=== PATIENT | female | born 1930 | race Hispanic/Latino ===

== ENCOUNTER 2017-07-12 10:19 | Observation (INO) | payer MEDICARE, MEDICAID ==
[2017-07-12 10:22] VITALS: BMI 26.4
[2017-07-12] MEDS ORDERED: Sodium Chloride 0.9% 500 ML IV STA (11:15)
[2017-07-12] MEDS ORDERED: Albuterol-Ipratrop 3 mg / 0.5 (3 ml) UD INH STA (11:17)
[2017-07-12] MEDS ORDERED: Albuterol-Ipratrop 3 mg / 0.5 (3 ml) UD IH STA (11:17)
--- NOTE | 2017-07-12 11:24 | ED PDOC ---
HPI: General Adult Time Seen by Provider: 07/12/17 10:53 Chief Complaint (Nursing): Dizziness/Lightheaded Chief Complaint (Provider): Dizziness History Per: Patient History/Exam Limitations: no limitations Onset/Duration Of Symptoms: Days (1 week) Current Symptoms Are (Timing): Still Present Additional Complaint(s): Pt. complains of dizziness for 1 week. Also her BP was high at home. Pt. states weakness all over and off and on asthma like her asthma. No numbness, tingles. No neck pain, headaches, back pain, chest pain/ No leg pain. No fever. No cough. Past Medical History Reviewed: Nursing Documentation, Vital Signs Vital Signs: Last Vital Signs Temp 97.9 F 07/12/17 10:22 Pulse 100 H 07/12/17 10:22 Resp 17 07/12/17 10:22 BP 181/97 H 07/12/17 10:22 Pulse Ox 96 07/12/17 11:29 - Medical History PMH: Anemia, Anxiety, Arthritis (severe L-spine), Asthma, CHF, COPD, Gastritis, HTN, Osteoporosis, Pneumonia Denies: HIV, Hyperlipidemia, Chronic Kidney Disease Other PMH: myasthenia gravis - Family History Family History: States: Unknown Family Hx - Social History Alcohol: None Drugs: Denies - Home Medications Home Medications: Ambulatory Orders Medication Instructions Recorded Albuterol HFA [Ventolin HFA 90 2 puff IH [id number] PRN 05/24/15 mcg/actuation (8 g)] Ferrous Sulfate [Feosol] 325 mg PO DAILY 05/24/15 Pyridostigmine [place] 60 mg PO QID 05/24/15 Calcium Carbonate/Vitamin D3 1 tab PO BID 06/21/15 [Caltrate 600 Plus D3 Tablet] ALPRAZolam [Xanax] 0.25 mg PO BID PRN 10/25/15 amLODIPine [Norvasc] 5 mg PO DAILY 02/14/16 Albuterol 0.083% [Albuterol 0.083% 3 ml IH Q6H PRN 02/15/16 Inhal Patricia (2.5 mg/3 ml) UD] predniSONE [predniSONE Tab] 10 mg PO DAILY 02/15/16 Valsartan [Diovan] 1 tab PO DAILY 08/07/16 Omeprazole 40 mg PO DAILY 10/16/16 Lidocaine 5% [Lidoderm] 1 patch TOP Q12 12/25/16 Hydrocortisone 2.5% 2.5 % TOP BID 03/05/17 [Hydrocortisone 2.5%] Meloxicam [Mobic] 1 tab PO HS PRN 06/25/17 - Allergies Allergies/Adverse Reactions: Allergies Allergy/AdvReac Type Severity Reaction Status Date / Time No Known Allergies Allergy Verified 06/25/17 15:20 Review of Systems ROS Statement: Except As Marked, All Systems Reviewed And Found Negative Constitutional: Positive for: Weakness Respiratory: Positive for: Shortness of Breath Neurological: Positive for: Weakness, Dizziness Physical Exam - Reviewed Nursing Documentation Reviewed: Yes Vital Signs Reviewed: Yes - Physical Exam Appears: Positive for: Non-toxic, No Acute Distress Head Exam: Positive for: ATRAUMATIC, NORMAL INSPECTION, NORMOCEPHALIC Skin: Positive for: Normal Color, Warm, DRY Eye Exam: Positive for: EOMI, Normal appearance, PERRL ENT: Positive for: Normal ENT Inspection Neck: Positive for: Normal, Painless ROM, Supple Cardiovascular/Chest: Positive for: Regular Rate, Rhythm Respiratory: Positive for: CNT, Normal Breath Sounds Gastrointestinal/Abdominal: Positive for: Normal Exam, Bowel Sounds, Soft. Negative for: Tenderness Back: Positive for: Normal Inspection. Negative for: L CVA Tenderness, R CVA Tenderness Extremity: Positive for: Normal ROM. 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 Negative for: Motor/Sensory Deficits, Aphasia, Facial Droop - Laboratory Results Result Diagrams: 07/12/17 12:26 07/12/17 12:26 Interpretation Of Abn Labs: no acute - ECG ECG: Positive for: Interpreted By Me, Viewed By Me ECG Rhythm: Positive for: Nonspecific Changes Interpretation Of ECG: similar to old O2 Sat by Pulse Oximetry: 96 Pulse Ox Interpretation: Normal - Radiology X-Ray: Read By Radiologist X-Ray Interpretation: No Acute Disease - CT Scan/US ct Other Rad Studies (CT/US): Read By Radiologist Other Rad Interpretation: no acute - Progress ED Course And Treament: 1454: Stable. AAOx3. Spoke to Dr. Pedro. Pt. well known to him. Will admit tele obs. Disposition - Clinical Impression Clinical Impression: Dizziness - Patient ED Disposition Is Patient to be Admitted: No - Disposition Disposition Time: 14:00 Condition: FAIR - Pt Status Changed To: Hospital Disposition Of: Observation - POA Present On Arrival: None
--- NOTE | 2017-07-12 12:28 | CT ---
PROCEDURE: CT HEAD WITHOUT CONTRAST. HISTORY: headache COMPARISON: None available. TECHNIQUE: Axial computed tomography images were obtained through the head/brain without intravenous contrast. Radiation dose: Total exam DLP = 838.42 mGy-cm. This CT exam was performed using one or more of the following dose reduction techniques: Automated exposure control, adjustment of the mA and/or kV according to patient size, and/or use of iterative reconstruction technique. FINDINGS: HEMORRHAGE: No intracranial hemorrhage. BRAIN: Good corticomedullary differentiation is seen. Diffuse expansion of the ventriculosulcal and cisternal spaces is appreciated with white matter lucency compatible with diffuse cerebral atrophy and chronic microangiopathy. No suspicious extra-axial fluid collection is identified and the midline brain anatomy appears grossly nonfocal as imaged. There is no mass effect throughout. Relatively extensive atherosclerosis of the cavernous bilateral internal carotid artery segments is identified as well as a segment of the distal left vertebral artery. VENTRICLES: Unremarkable. No hydrocephalus. CALVARIUM: Unremarkable. PARANASAL SINUSES: Partial opacification of the left sphenoid sinus including central calcification likely reflects chronic, inspissated sinusitis. MASTOID AIR CELLS: Unremarkable as visualized. No inflammatory changes. OTHER FINDINGS: None. IMPRESSION: Age related neuro degenerative changes are identified without acute intracranial findings as discussed above. Follow up CT or MRI are available if clinically warranted.
[2017-07-12] MEDS ORDERED: Albuterol-Ipratrop 3 mg / 0.5 (3 ml) UD ONE (12:30)
--- NOTE | 2017-07-12 12:30 | RAD ---
HISTORY: dyspnea COMPARISON: Portable chest 02/15/2016. FINDINGS: LUNGS: No active pulmonary disease. PLEURA: No significant pleural effusion identified, no pneumothorax apparent. CARDIOVASCULAR: Cardiac silhouette is stable with the mediastinum somewhat distorted by a scoliotic thoracolumbar spinal deformity once again. OSSEOUS STRUCTURES: Scoliosis as above. VISUALIZED UPPER ABDOMEN: Normal. OTHER FINDINGS: None. IMPRESSION: No definite acute cardiopulmonary disease appreciable in the interval compared prior chest radiograph 02/15/2016.
[2017-07-12 12:42] LABS: BASO # 0.1 K/uL (0.0-0.2); BASO % 0.9 % (0.0-2.0); EOS # 0.1 K/uL (0.0-0.7); EOS % 1.3 % (0.0-4.0); HEMOGLOBIN 12.6 g/dL (12.0-16.0); LYMPH # 1.2 K/uL (1.0-4.3); LYMPH % 21.7 % (20.0-40.0); MEAN CELL VOLUME 97.8 fl (81.0-99.0); MEAN CORPUSCULAR HEMOGLOBIN 32.2 pg (27.0-31.0); MEAN CORPUSCULAR HGB CONC 32.9 g/dL (33.0-37.0); MEAN PLATELET VOLUME 9.3 fl (7.2-11.7); MONO # 0.6 K/uL (0.0-0.8); MONO % 11.7 % (0.0-10.0); NEUT # 3.5 K/uL (1.8-7.0); NEUT % 64.4 % (50.0-75.0); NRBC % 0.1 % (0.0-0.0); RBC 3.92 Mil/uL (3.80-5.20); RED CELL DISTRIBUTION WIDTH 13.4 % (11.5-14.5); WHITE BLOOD COUNT 5.4 K/uL (4.8-10.8)
[2017-07-12 12:47] LABS: ALB/GLOB RATIO 0.9 (1.0-2.1); ALBUMIN 3.9 g/dL (3.5-5.0); ALT/SGPT 32 U/L (9-52); AST/SGOT 38 U/L (14-36); BLOOD UREA NITROGEN 16 mg/dl (7-17); CALCIUM 9.3 mg/dL (8.4-10.2); GFR AFRICAN-AMERICAN > 60; GFR NON-AFRICAN AMERICAN > 60
[2017-07-12 12:52] LABS: PROTHROMBIN TIME 10.2 Seconds (9.8-13.1)
[2017-07-12 12:53] LABS: INR 0.9 (0.9-1.2); PARTIAL THROMBOPLASTIN TIME 25.3 Seconds (25.6-37.1)
[2017-07-12] MEDS ORDERED: Albuterol-Ipratrop 3 mg / 0.5 (3 ml) UD INH PRN (16:41)
--- NOTE | 2017-07-12 16:44 | CP.PCM.HP ---
History of Present Illness - History of Present Illness History of Present Illness: This is a 66 y/o female with PMHx of Myasthenia gravis late onset, that has been responding with treatment, anemia , renal insufficiency, OA, anxiety and HTn and COPD that presented to ED c/o dizziness for 1 week. Denies headache, worsening vision, SOB, CP, palpitations, abd pain or vomiting. At ED found to be elevated BP. Patient states she is compliant with her home meds and follow with Dr Pedro at the office as well as with Dr Caba(Neuro) for MG Present on Admission - Present on Admission Any Indicators Present on Admission: No Review of Systems - Review of Systems All systems: reviewed and no additional remarkable complaints except (Those described on HPI) Past Patient History - Infectious Disease Hx of Infectious Diseases: None - Past Medical History & Family History Past Medical History?: Yes - Past Social History Alcohol: None Drugs: Denies - CARDIAC Hx Congestive Heart Failure: Yes Hx Hypertension: Yes - PULMONARY Hx Asthma: Yes Hx Chronic Obstructive Pulmonary Disease (COPD): Yes Hx Pneumonia: Yes - NEUROLOGICAL Hx Neurological Disorder: Yes (Myastenia) - HEENT Hx HEENT Problems: No - RENAL Hx Chronic Kidney Disease: No - ENDOCRINE/METABOLIC Hx Endocrine Disorders: No - HEMATOLOGICAL/ONCOLOGICAL Hx Anemia: Yes Hx Human Immunodeficiency Virus (HIV): No - INTEGUMENTARY Hx Dermatological Problems: No - MUSCULOSKELETAL/RHEUMATOLOGICAL Hx Arthritis: Yes (severe L-spine) Hx Osteoporosis: Yes - GASTROINTESTINAL Hx Gastritis: Yes - GENITOURINARY/GYNECOLOGICAL Hx Genitourinary Disorders: No Hx Urinary Tract Infection: Yes - PSYCHIATRIC Hx Anxiety: Yes - SURGICAL HISTORY Hx Surgeries: Yes Hx Vascular Access Device: No (Sree cath LR IJ) Other/Comment: Sree cath removed 07/27/2014 surgery on left leg, HERNIA REPAIR - ANESTHESIA Hx Anesthesia: Yes Hx Anesthesia Reactions: No Hx Malignant Hyperthermia: No Meds Allergies/Adverse Reactions: Allergies Allergy/AdvReac Type Severity Reaction Status Date / Time No Known Allergies Allergy Verified 06/25/17 15:20 Physical Exam - Constitutional Appears: Non-toxic, No Acute Distress - Eye Exam Eye Exam: EOMI, PERRL. absent: Nystagmus - ENT Exam ENT Exam: Mucous Membranes Moist - Respiratory Exam Respiratory Exam: Clear to Auscultation Bilateral, NORMAL BREATHING PATTERN. absent: Decreased Breath Sounds, Rales, Wheezes, Respiratory Distress - Cardiovascular Exam Cardiovascular Exam: REGULAR RHYTHM, +S1, +S2. absent: Clicks, Gallop - GI/Abdominal Exam GI & Abdominal Exam: Hernia, Normal Bowel Sounds, Soft. absent: Distended, Guarding, Rebound, Rigid, Tenderness - Extremities Exam Extremities exam: Positive for: normal capillary refill, pedal pulses present. Negative for: calf tenderness, pedal edema, tenderness - Neurological Exam Neurological exam: Alert, Oriented x3 - Psychiatric Exam Psychiatric exam: Normal Affect, Normal Mood - Skin Skin Exam: Normal Color, Warm Results - Vital Signs Recent Vital Signs: Last Vital Signs Temp 97.9 F 07/12/17 10:22 Pulse 100 H 07/12/17 10:22 Resp 17 07/12/17 10:22 BP 181/97 H 07/12/17 10:22 Pulse Ox 96 07/12/17 14:56 - Labs Result Diagrams: 07/12/17 12:26 07/12/17 12:26 Labs: Laboratory Results - last 24 hr 07/12/17 07/12/17 07/12/17 12:26 12:26 12:26 WBC 5.4 RBC 3.92 Hgb 12.6 Hct 38.3 MCV 97.8 MCH 32.2 H MCHC 32.9 L RDW 13.4 Plt Count 252 MPV 9.3 Neut % (Auto) 64.4 Lymph % (Auto) 21.7 [place] % (Auto) 11.7 H Eos % (Auto) 1.3 Baso % (Auto) 0.9 Neut # (Auto) 3.5 Lymph # (Auto) 1.2 [place] # (Auto) 0.6 Eos # (Auto) 0.1 Baso # (Auto) 0.1 PT 10.2 INR 0.9 APTT 25.3 L Sodium 133 Potassium 4.7 Chloride 96 L Carbon Dioxide 30 Anion Gap 12 BUN 16 Creatinine 0.7 Est GFR ( Amer) > 60 Est GFR (Non-Af Amer) > 60 Random Glucose 98 Calcium 9.3 Total Bilirubin 1.0 AST 38 H D ALT 32 Alkaline Phosphatase 63 Troponin I < 0.0120 Total Protein 8.1 Albumin 3.9 Globulin 4.2 H Albumin/Globulin Ratio 0.9 L Assessment & Plan - Assessment and Plan (Free Text) Assessment: Dizziness x 1 week Poss due to uncontrolled HTN Bp elevated at ED Restart home meds Amlodipine [address] head: Age related changes S/P Meclizine at ED CMP/CBC unremarkable
[2017-07-13 00:39] VITALS: RESP 18
[2017-07-13] MEDS ORDERED: Pantoprazole 40 mg EC Tab PO SCH (09:00)
--- NOTE | 2017-07-13 09:57 | CARD ---
APPROVED REPORT EKG Measurement Heart [id number] <Conclusion> Sinus tachycardia with premature atrial contractions Nonspecific T wave abnormality Abnormal ECG
[2017-07-13 12:30] VITALS: BP 148/75; PULSE 88; TEMP 98.6; O2SAT 96
--- NOTE | 2017-07-13 14:08 | CP.PCM.DIS ---
Provider - Provider Date of Admission: 07/12/17 14:55 Attending physician: Vin Pedro MD Hospital Course - Lab Results Lab Results: Most Recent Lab Values WBC 5.4 K/uL (4.8-10.8) 07/12/17 12: RBC 3.92 Mil/uL (3.80-5.20) 07/12/17 12: Hgb 12.6 g/dL (12.0-16.0) 07/12/17 12: Hct 38.3 % (34.0-47.0) 07/12/17 12: MCV 97.8 fl (81.0-99.0) 07/12/17 12: MCH 32.2 pg (27.0-31.0) H 07/12/17 12: MCHC 32.9 g/dL (33.0-37.0) L 07/12/17 12: RDW 13.4 % (11.5-14.5) 07/12/17 12: Plt Count 252 K/uL (130-400) 07/12/17 12: MPV 9.3 fl (7.2-11.7) 07/12/17 12: Neut % (Auto) 64.4 % (50.0-75.0) 07/12/17 12: Lymph % (Auto) 21.7 % (20.0-40.0) 07/12/17 12: [place] % (Auto) 11.7 % (0.0-10.0) H 07/12/17 12: Eos % (Auto) 1.3 % (0.0-4.0) 07/12/17 12: Baso % (Auto) 0.9 % (0.0-2.0) 07/12/17 12: Neut # (Auto) 3.5 K/uL (1.8-7.0) 07/12/17 12: Lymph # (Auto) 1.2 K/uL (1.0-4.3) 07/12/17 12: [place] # (Auto) 0.6 K/uL (0.0-0.8) 07/12/17 12: Eos # (Auto) 0.1 K/uL (0.0-0.7) 03/23/18 12:26 Baso # (Auto) 0.1 K/uL (0.0-0.2) 07/12/17 12:26 PT 10.2 Seconds (9.8-13.1) 07/12/17 12:26 INR 0.9 (0.9-1.2) 07/12/17 12:26 APTT 25.3 Seconds (25.6-37.1) L 07/12/17 12:26 Sodium 133 mmol/l (132-148) 07/12/17 12:26 Potassium 4.7 MMOL/L (3.6-5.0) 07/12/17 12:26 Chloride 96 mmol/L (98-107) L 07/12/17 12:26 Carbon Dioxide 30 mmol/L (22-30) 07/12/17 12:26 Anion Gap 12 (10-20) 07/12/17 12:26 BUN 16 mg/dl (7-17) 07/12/17 12:26 Creatinine 0.7 mg/dl (0.7-1.2) 07/12/17 12:26 Est GFR ( Amer) > 60 07/12/17 12:26 Est GFR (Non-Af Amer) > 60 07/12/17 12:26 POC Glucose (mg/dL) 154 mg/dL (65-110) H 07/12/17 21:45 Random Glucose 98 mg/dL (65-105) 07/12/17 12:26 Calcium 9.3 mg/dL (8.4-10.2) 07/12/17 12:26 Total Bilirubin 1.0 mg/dl (0.2-1.3) 07/12/17 12:26 AST 38 U/L (14-36) H D 07/12/17 12:26 ALT 32 U/L (9-52) 07/12/17 12:26 Alkaline Phosphatase 63 U/L (38-126) 07/12/17 12:26 Troponin I < 0.0120 ng/mL (0.00-0.120) 07/12/17 12:26 Total Protein 8.1 G/DL (6.3-8.2) 07/12/17 12:26 Albumin 3.9 g/dL (3.5-5.0) 07/12/17 12:26 Globulin 4.2 gm/dL (2.2-3.9) H 07/12/17 12:26 Albumin/Globulin Ratio 0.9 (1.0-2.1) L 07/12/17 12:26 - Hospital Course Hospital Course: This is an 87 y/o female admitted for severe dizziness and elevated BP. Discharge Exam - Head Exam Head Exam: ATRAUMATIC, NORMAL INSPECTION, NORMOCEPHALIC Discharge Plan - Follow Up Plan Condition: STABLE Disposition: HOME/ ROUTINE
== END 2017-07-13 15:00 | disposition home or self-care (01) ==
LOC: H.ER 10:19 → H.ERHOLD 14:55 → H.TEL 19:11
PROVIDERS: ADMIT Family Medicine; ATTEND Family Medicine
DX: R42 Dizziness and giddiness (principal); I11.0 Hypertensive heart disease with heart failure; I50.9 Heart failure, unspecified; J44.9 Chronic obstructive pulmonary disease, unspecified; M81.0 Age-related osteoporosis without current pathological fracture; Z87.01 Personal history of pneumonia (recurrent); Z87.440 Personal history of urinary (tract) infections; D64.9 Anemia, unspecified; F41.9 Anxiety disorder, unspecified; K29.70 Gastritis, unspecified, without bleeding; M19.90 Unspecified osteoarthritis, unspecified site; G70.00 Myasthenia gravis without (acute) exacerbation; N28.9 Disorder of kidney and ureter, unspecified
CPT/HCPCS: 70450; 71045; 80053; 82948; 84484; 85025; 85610; 85730; 93005; 96374; 99285; G0378; J2930; J7040

== ENCOUNTER 2018-08-11 09:50 | Emergency (ER) | payer MEDICARE, MEDICAID ==
[2018-08-11 09:53] VITALS: BMI 29.2
[2018-08-11 09:54] VITALS: TEMP 98.2; O2SAT 99
--- NOTE | 2018-08-11 10:15 | ED PDOC ---
HPI: Back Time Seen by Provider: 08/11/18 10:00 Chief Complaint (Nursing): Back Pain Chief Complaint (Provider): Lower back pain History Per: Patient History/Exam Limitations: no limitations Onset/Duration Of Symptoms: Days Current Symptoms Are (Timing): Still Present Quality Of Discomfort: "Pain" Severity: Moderate Previous Symptoms: Back Pain Associated Symptoms: None Additional History Per: Patient Additional Complaint(s): 88yo female with history of hypertension, myasthenia gravis, brought to ER for evaluation due to lower back pain x 3 days. Patient has a history of back pain, and denies any new injury, or heavy lifting. She states the pain is non- radiating and not associated with new weakness or paresthesia. No urinary incontinence, dysuria or hematuria. No additional complaints. PMD: Dr. Willis [facility] Past Medical History Reviewed: Historical Data, Nursing Documentation, Vital Signs Vital Signs: Last Vital Signs Temp 98.2 F 08/11/18 09:53 Pulse 97 H 08/11/18 09:53 Resp 20 08/11/18 09:53 BP 157/77 H 08/11/18 09:53 Pulse Ox 99 08/11/18 09:53 - Medical History PMH: Anemia, Anxiety, Arthritis (severe L-spine), Asthma, CHF, COPD, Gastritis, HTN, Osteoporosis, Pneumonia Denies: HIV, Hyperlipidemia, Chronic Kidney Disease Other PMH: myasthenia gravis - Surgical History Surgical History: No Surg Hx - Family History Family History: States: Unknown Family Hx - Social History Current smoker - smoking cessation education provided: No Alcohol: None Drugs: Denies - Home Medications Home Medications: Ambulatory Orders Medication Instructions Recorded Albuterol HFA [Ventolin HFA 90 2 puff IH [id number] PRN 05/24/15 mcg/actuation (8 g)] Calcium Carbonate/Vitamin D3 1 tab PO BID 06/21/15 [Caltrate 600 Plus D3 Tablet] Albuterol 0.083% [Albuterol 0.083% 3 ml IH Q6H PRN 02/15/16 Inhal Patricia (2.5 mg/3 ml) UD] predniSONE [predniSONE Tab] 10 mg PO HS 02/15/16 Omeprazole 40 mg PO DAILY 10/16/16 Lidocaine 5% [Lidoderm] 1 patch TOP Q12 12/25/16 ALPRAZolam [Xanax] 0.25 mg PO BID PRN tab 07/13/17 Albuterol/Ipratropium [Duoneb 3 3 ml INH RQ6 PRN neb 07/13/17 mg/0.5 mg (3 ml) UD] Ferrous Sulfate [Feosol] 325 mg PO DAILY tab 07/13/17 Pyridostigmine [Mestinon Tab] 60 mg PO QID tab 07/13/17 Metoprolol Tartrate [Lopressor] 1 tab PO BID 01/21/18 Fluticasone/Salmeterol [Advair 1 each IH DAILY 04/29/18 250-50 Diskus] Olmesartan Medoxomil [Benicar] 40 mg PO DAILY 04/29/18 Naproxen [Naprosyn] 500 mg PO Q12H #20 tab 08/11/18 - Allergies Allergies/Adverse Reactions: Allergies Allergy/AdvReac Type Severity Reaction Status Date / Time No Known Allergies Allergy Verified 07/08/18 08:14 Review of Systems ROS Statement: Except As Marked, All Systems Reviewed And Found Negative Genitourinary Female: Negative for: Dysuria, Incontinence Musculoskeletal: Positive for: Back Pain Neurological: Negative for: Weakness, Numbness Physical Exam - Reviewed Nursing Documentation Reviewed: Yes Vital Signs Reviewed: Yes - Physical Exam Appears: Positive for: Non-toxic Head Exam: Positive for: ATRAUMATIC, NORMAL INSPECTION, NORMOCEPHALIC Skin: Positive for: Normal Color Eye Exam: Positive for: Normal appearance, EOMI, PERRL Neck: Positive for: Supple Cardiovascular/Chest: Positive for: Regular Rate, Rhythm. Negative for: Tachycardia Respiratory: Positive for: Normal Breath Sounds. Negative for: Respiratory Distress Gastrointestinal/Abdominal: Positive for: Soft Back: Positive for: Normal Inspection (no midline tenderness or deformities). Negative for: Vertebral Tenderness, Decreased ROM, Muscle Spasm Extremity: Positive for: Normal ROM. Negative for: Pedal Edema, Deformity Neurological/Psych: Positive for: Awake, Alert, Oriented (x 3), Motor/Sensory Deficits (no new focal deficits) - ECG O2 Sat by Pulse Oximetry: 99 (RA) Pulse Ox Interpretation: Normal Medical Decision Making Medical Decision Mak[place] female with lower back pain Plan: -- XR Lumbar spine -- UDip Scribe Attestation: Documented by Idalia Álvarez, acting as a scribe for Minh Osuna MD. Provider Scribe Attestation: All medical record entries made by the Scribe were at my direction and personally dictated by me. I have reviewed the chart and agree that the record accurately reflects my personal performance of the history, physical exam, medical decision making, and the department course for this patient. I have also personally directed, reviewed, and agree with the discharge instructions and disposition. Disposition - Clinical Impression Clinical Impression: Scoliosis, Degenerative disc disease, lumbar - Patient ED Disposition Is Patient to be Admitted: No Counseled Patient/Family Regarding: Studies Performed, Diagnosis, Need For Followup, Rx Given - Disposition Referrals: Vin Pedro MD [Family Provider] - Disposition: Routine/Home Disposition Time: 11:34 Condition: FAIR Prescriptions: Naproxen [Naprosyn] 500 mg PO Q12H #20 tab Instructions: Degenerative Disc Disease Forms: [employer] (Sinhala) Print Language: MALAY
--- NOTE | 2018-08-11 12:07 | RAD ---
Date of service: 08/11/2018 PROCEDURE: Radiographs of the Lumbar Spine. HISTORY: Low back pain COMPARISON: No prior. TECHNIQUE: 5 views obtained. FINDINGS: BONES: Examination grossly limited due to marked osteopenia and scoliotic deformity. There levoscoliosis of the lumbar spine. The lumbar vertebral bodies are grossly maintained in height. There is questionable T10 vertebral compression deformity seen only in the frontal projection. Consider further evaluation with radiography of the thoracic spine. DISC SPACES: Unremarkable. OTHER FINDINGS: None. IMPRESSION: Questionable T10 vertebral compression deformity of indeterminate age. Limited evaluation. No evidence of lumbar fracture. Levoscoliosis.
[2018-08-11 14:24] VITALS: BP 130/60; PULSE 77; RESP 16
== END 2018-08-11 14:20 | disposition home or self-care (01) ==
LOC: H.ER 09:50
DX: M41.9 Scoliosis, unspecified (principal); M51.36 Other intervertebral disc degeneration, lumbar region; J44.9 Chronic obstructive pulmonary disease, unspecified; G70.00 Myasthenia gravis without (acute) exacerbation

== ENCOUNTER 2018-08-15 10:44 | Inpatient (IN) | payer MEDICARE, MEDICAID ==
[2018-08-15 10:47] VITALS: BMI 23.1
[2018-08-15 11:25] LABS: BASO # 0.1 K/uL (0.0-0.2); BASO % 0.9 % (0.0-2.0); EOS # 0.1 K/uL (0.0-0.7); EOS % 0.9 % (0.0-4.0); HEMOGLOBIN 11.4 g/dL (12.0-16.0); LYMPH % 16.8 % (20.0-40.0); MEAN CELL VOLUME 97.6 fl (81.0-99.0); MEAN CORPUSCULAR HEMOGLOBIN 32.6 pg (27.0-31.0); MEAN CORPUSCULAR HGB CONC 33.4 g/dL (33.0-37.0); MEAN PLATELET VOLUME 8.4 fl (7.2-11.7); MONO # 0.7 K/uL (0.0-0.8); MONO % 11.5 % (0.0-10.0); NEUT # 4.3 K/uL (1.8-7.0); NEUT % 69.9 % (50.0-75.0); RBC 3.49 Mil/uL (3.80-5.20); RED CELL DISTRIBUTION WIDTH 13.9 % (11.5-14.5); WHITE BLOOD COUNT 6.1 K/uL (4.8-10.8)
[2018-08-15 11:34] LABS: ALB/GLOB RATIO 1.1 (1.0-2.1); ALBUMIN 3.8 g/dL (3.5-5.0); ALT/SGPT 33 U/L (9-52); AST/SGOT 40 U/L (14-36); BLOOD UREA NITROGEN 22 mg/dl (7-17); CALCIUM 9.5 mg/dL (8.4-10.2); GFR NON-AFRICAN AMERICAN > 60
--- NOTE | 2018-08-15 12:33 | ED PDOC ---
HPI: Back Time Seen by Provider: 08/15/18 10:50 Chief Complaint (Nursing): Back Pain Chief Complaint (Provider): Back Pain History Per: Patient History/Exam Limitations: no limitations Onset/Duration Of Symptoms: Days Current Symptoms Are (Timing): Still Present Additional Complaint(s): 88 year old [place]ri[place] female with a past medical history of myasthenia gravis, osteoporosis, sciatica, and osteoarthritis who is presenting to the ED for evaluation of lower back pain ongoing since last week. Patient states that she was in this 4 days ago for the same complaints and was discharged on Naproxen that provides no relief. She admits that pain radiates to the extremities and is constant and scaled from moderate to severe. She denies any history of trauma or fall. PMD: Dr. Pedro Neurologist: Dr. Caba Past Medical History Reviewed: Historical Data, Nursing Documentation, Vital Signs Vital Signs: Last Vital Signs Temp 97.7 F 08/15/18 10:47 Pulse 83 08/15/18 10:47 Resp 20 08/15/18 10:47 BP 147/92 H 08/15/18 10:47 Pulse Ox 96 08/15/18 10:47 Primary Care Physician: Vin Pedro MD - Medical History PMH: Anemia, Anxiety, Arthritis (severe L-spine), Asthma, CHF, COPD, Gastritis, HTN, Osteoporosis, Pneumonia Denies: HIV, Hyperlipidemia, Chronic Kidney Disease - Surgical History Surgical History: Hernia Repair - Family History Family History: States: Unknown Family Hx - Social History Current smoker - smoking cessation education provided: No Alcohol: None Drugs: Denies - Immunization History Hx Tetanus Toxoid Vaccination: No Hx Influenza Vaccination: Yes Hx Pneumococcal Vaccination: No - Home Medications Home Medications: Ambulatory Orders Medication Instructions Recorded Albuterol HFA [Ventolin HFA 90 2 puff IH [id number] PRN 05/24/15 mcg/actuation (8 g)] Calcium Carbonate/Vitamin D3 1 tab PO BID 06/21/15 [Caltrate 600 Plus D3 Tablet] Albuterol 0.083% [Albuterol 0.083% 3 ml IH Q6H PRN 02/15/16 Inhal Patricia (2.5 mg/3 ml) UD] predniSONE [predniSONE Tab] 10 mg PO HS 02/15/16 Omeprazole 40 mg PO DAILY 10/16/16 Lidocaine 5% [Lidoderm] 1 patch TOP Q12 12/25/16 ALPRAZolam [Xanax] 0.25 mg PO BID PRN tab 07/13/17 Albuterol/Ipratropium [Duoneb 3 3 ml INH RQ6 PRN neb 07/13/17 mg/0.5 mg (3 ml) UD] Ferrous Sulfate [Feosol] 325 mg PO DAILY tab 07/13/17 Pyridostigmine [Mestinon Tab] 60 mg PO QID tab 07/13/17 Metoprolol Tartrate [Lopressor] 1 tab PO BID 01/21/18 Fluticasone/Salmeterol [Advair 1 each IH DAILY 04/29/18 250-50 Diskus] Olmesartan Medoxomil [Benicar] 40 mg PO DAILY 04/29/18 Naproxen [Naprosyn] 500 mg PO Q12H #20 tab 08/11/18 - Allergies Allergies/Adverse Reactions: Allergies Allergy/AdvReac Type Severity Reaction Status Date / Time No Known Allergies Allergy Verified 07/08/18 08:14 Review of Systems ROS Statement: Except As Marked, All Systems Reviewed And Found Negative Musculoskeletal: Positive for: Back Pain, Leg Pain Physical Exam - Reviewed Nursing Documentation Reviewed: Yes Vital Signs Reviewed: Yes - Physical Exam Appears: Positive for: Non-toxic, No Acute Distress, Uncomfortable Head Exam: Positive for: ATRAUMATIC, NORMAL INSPECTION, NORMOCEPHALIC Skin: Positive for: Normal Color, Warm, DRY Eye Exam: Positive for: EOMI, Normal appearance, PERRL Neck: Positive for: Normal, Painless ROM Cardiovascular/Chest: Positive for: Regular Rate, Rhythm. Negative for: Murmur Respiratory: Positive for: Normal Breath Sounds. Negative for: Respiratory Distress Gastrointestinal/Abdominal: Positive for: Normal Exam, Soft. Negative for: Tenderness Back: Positive for: Normal Inspection. Negative for: L CVA Tenderness, R CVA Tenderness, Vertebral Tenderness Extremity: Positive for: Normal ROM. Negative for: Deformity, Swelling Neurological/Psych: Positive for: Awake, Alert, Normal Tone, Oriented. Negative for: Motor/Sensory Deficits - Laboratory Results Result Diagrams: 08/15/18 11:21 08/15/18 11:21 Lab Results: Total Bilirubin 0.7 mg/dl (0.2-1.3) 08/15/18 11:21 AST 40 U/L (14-36) H 08/15/18 11:21 ALT 33 U/L (9-52) 08/15/18 11:21 Alkaline Phosphatase 92 U/L (38-126) 08/15/18 11:21 Total Protein 7.3 G/DL (6.3-8.2) 08/15/18 11:21 Albumin 3.8 g/dL (3.5-5.0) 08/15/18 11:21 Globulin 3.5 gm/dL (2.2-3.9) 08/15/18 11:21 Albumin/Globulin Ratio 1.1 (1.0-2.1) 08/15/18 11:21 - ECG O2 Sat by Pulse Oximetry: 96 (RA) Pulse Ox Interpretation: Normal Medical Decision Making Medical Decision Making: Time: 11:21 Impression: 88 year old female with lower back pain Plan: --CT Lumbar Spine --EKG --CMP --Creatine Phosphokinase --ED Urine Dipstick --CBC --Morphine [address] Lumbar Spine: FINDINGS: VERTEBRAE: 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 Further, the lumbar lordotic curvature appears accentuated. A limited grade 1 spondylolisthesis of L4 anterior to L5 due to gross facet joint degenerative changes with in fact fusion of the bilateral posterior elements identified at this level. No spondylolysis appreciated. No destructive bony lesion identified. Variable height loss is appreciated with nearly all vertebral body sparing only L2 correcting probable scoliosis related deformities with acute fracture is not favored but difficult to completely exclude. Diffuse osteopenia suggests osteoporosis. Gross degenerative disc disease manifest by vacuum disc changes at the inferior thoracic spine at multiple levels and upper lumbar spine with marked disc height loss and soft tissue calcification affecting L4-5 intervertebral disc. DISCS/SPINAL CANAL/NEURAL FORAMINA: L1-2: Limited disc osteophyte complex identified as well as facet joint degenerative change only borderline central canal stenosis resulting. No left neural foraminal stenosis. Severe degenerative right neural foraminal stenosis identified. L2-3: A disc osteophyte complex and prominent facet joint degenerative changes are identified causing moderate central canal stenosis and moderate rig ht neural foraminal stenosis. No significant left neural foraminal stenosis. L3-4: Moderate to severe severe degenerative central stenosis results from disc osteophyte complex here combining with facet joint degenerative arthropathy. Stenosis greater at the left and right sides due to scoliosis. [id number] left and moderate right degenerative neural foraminal stenoses are identified. L4-5: A severe/high-grade degenerative central canal stenosis results from grade 1 spondylolisthesis and marked facet joint degenerative arthropathy. Significant right neural foraminal stenosis. [id number] left neural foraminal stenosis. L5-S1: A moderate central stenosis results from disc osteophyte complex combining with facet joint degenerative arthropathy. No significant right neural foraminal stenosis. Moderate left degenerative neural foraminal stenosis identified. PARASPINAL SOFT TISSUES: No immediate prevertebral or paraspinal pathology grossly evident exclusive ectatic partially calcified atherosclerosis of the visualized thoracoabdominal aorta. Note is made of reiteration of bilateral renal cysts which are partially captured in this examination appearing similar to those identified in prior renal ultrasound 02/16/2016. OTHER FINDINGS: None. IMPRESSION: Advanced multilevel degenerative disc and facet joint changes are identified with grade 1 spondylolisthesis identified at L4-5 on a degenerative basis. There is fusion of joints at L4-5. Multilevel degenerative neural foraminal stenosis appreciate throughout the majority of the lumbar spine seen worst at L4-5 where a severe high-grade central canal stenosis results with a moderate to severe central canal stenosis appearing degenerative at L3-4. Variable multilevel neural foraminal stenoses are degenerative caused by levoscoliotic lumbar spinal deformity. Double vertebral body heights are identified sparing only L2 potentially on the basis of scoliosis with acute fracture not favored given scoliotic deformity, but difficult to completely exclude. Partial imaging of bilateral renal cysts not appear dramatically changed in this unenhanced exam compared to prior abdomen ultrasound 02/16/2016. 14:05 Patient reports persistent pain, so additional morphine ordered. Spoke to Dr. Pedro and will place patient on observation status, given 2nd ED visit within 5 days. Scribe Attestation: Documented by July Poon, acting as a scribe for Darrel Posada MD. Provider Scribe Attestation: All medical record entries made by the Scribe were at my direction and personally dictated by me. I have reviewed the chart and agree that the record accurately reflects my personal performance of the history, physical exam, medical decision making, and the department course for this patient. I have also personally directed, reviewed, and agree with the discharge instructions and disposition. Disposition - Clinical Impression Clinical Impression: Intractable low back pain - Patient ED Disposition Is Patient to be Admitted: Yes (Observation Status) - Disposition Disposition Time: 14:11 Condition: FAIR
--- NOTE | 2018-08-15 13:12 | CT ---
Date of service: 08/15/2018 PROCEDURE: CT Lumbar Spine without contrast HISTORY: pain COMPARISON: Lumbar spine radiographs 08/11/2018. TECHNIQUE: Axial computed tomography images were obtained of the lumbar spine without the use of intravenous contrast. Coronal and sagittal reformatted images were created and reviewed. Radiation dose: Total exam DLP = 1171.8 mGy-cm. This CT exam was performed using one or more of the following dose reduction techniques: Automated exposure control, adjustment of the mA and/or kV according to patient size, and/or use of iterative reconstruction technique. 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 Further, the lumbar lordotic curvature appears accentuated. A limited grade 1 spondylolisthesis of L4 anterior to L5 due to gross facet joint degenerative changes with in fact fusion of the bilateral posterior elements identified at this level. No spondylolysis appreciated. No destructive bony lesion identified. Variable height loss is appreciated with nearly all vertebral body sparing only L2 correcting probable scoliosis related deformities with acute fracture is not favored but difficult to completely exclude. Diffuse osteopenia suggests osteoporosis. Gross degenerative disc disease manifest by vacuum disc changes at the inferior thoracic spine at multiple levels and upper lumbar spine with marked disc height loss and soft tissue calcification affecting L4-5 intervertebral disc. DISCS/SPINAL CANAL/NEURAL FORAMINA: L1-2: Limited disc osteophyte complex identified as well as facet joint degenerative change only borderline central canal stenosis resulting. No left neural foraminal stenosis. Severe degenerative right neural foraminal stenosis identified. L2-3: A disc osteophyte complex and prominent facet joint degenerative changes are identified causing moderate central canal stenosis and moderate right neural foraminal stenosis. No significant left neural foraminal stenosis. L3-4: Moderate to severe severe degenerative central stenosis results from disc osteophyte complex here combining with facet joint degenerative arthropathy. Stenosis greater at the left and right sides due to scoliosis. [id number] left and moderate right degenerative neural foraminal stenoses are identified. L4-5: A severe/high-grade degenerative central canal stenosis results from grade 1 spondylolisthesis and marked facet joint degenerative arthropathy. Significant right neural foraminal stenosis. [id number]-[id number] left neural foraminal stenosis. L5-S1: A moderate central stenosis results from disc osteophyte complex combining with facet joint degenerative arthropathy. No significant right neural foraminal stenosis. Moderate left degenerative neural foraminal stenosis identified. PARASPINAL SOFT TISSUES: No immediate prevertebral or paraspinal pathology grossly evident exclusive ectatic partially calcified atherosclerosis of the visualized thoracoabdominal aorta. Note is made of reiteration of bilateral renal cysts which are partially captured in this examination appearing similar to those identified in prior renal ultrasound 02/16/2016. OTHER FINDINGS: None. IMPRESSION: Advanced multilevel degenerative disc and facet joint changes are identified with grade 1 spondylolisthesis identified at L4-5 on a degenerative basis. There is fusion of joints at L4-5. Multilevel degenerative neural foraminal stenosis appreciate throughout the majority of the lumbar spine seen worst at L4-5 where a severe high-grade central canal stenosis results with a moderate to severe central canal stenosis appearing degenerative at L3-4. Variable multilevel neural foraminal stenoses are degenerative caused by levoscoliotic lumbar spinal deformity. Double vertebral body heights are identified sparing only L2 potentially on the basis of scoliosis with acute fracture not favored given scoliotic deformity, but difficult to completely exclude. Partial imaging of bilateral renal cysts not appear dramatically changed in this unenhanced exam compared to prior abdomen ultrasound 02/16/2016.
[2018-08-15] MEDS ORDERED: Albuterol HFA 90 mcg/actuation (8 g) IH PRN (18:03)
[2018-08-15] MEDS ORDERED: Acetaminophen-Codeine 300/30 mg Tab PO PRN (18:07)
--- NOTE | 2018-08-15 18:25 | CARD ---
APPROVED REPORT Date of service: 08/15/2018 EKG Measurement Heart [id number] MI [id number] <Conclusion> Sinus rhythm with successive premature atrial complexes Possible anterior infarct, age undetermined Abnormal ECG
[2018-08-15] MEDS: Naproxen 500 MG TAB PO SCH (21:10)
[2018-08-15] MEDS: FLUTICASONE PROPION/SALMETEROL 113-14 IH SCH (21:11)
[2018-08-16] MEDS: Acetaminophen-Codeine 300/30 mg Tab PO PRN ×3 (03:29→14:05)
[2018-08-16] MEDS: FLUTICASONE PROPION/SALMETEROL 113-14 IH SCH ×2 (08:31→20:43)
[2018-08-16] MEDS: Naproxen 500 MG TAB PO SCH ×2 (08:33→20:42)
[2018-08-16] MEDS: Calcium-Vit D 500 mg-200 Units Tab UD PO SCH ×2 (08:34→16:15)
[2018-08-16] MEDS: CYANOCOBALAMIN (VITAMIN B-12) 250 MCG TABLET PO SCH (08:34)
[2018-08-16] MEDS: Pantoprazole 40 mg EC Tab PO SCH (08:34)
--- NOTE | 2018-08-16 22:59 | CP.PCM.CON ---
History of Present Illness - History of Present Illness History of Present Illness: Pain Management: Pt seen and examined and spoke with RN. Patient with chronic low back pain. Patient asked for tylenol only today per RN. Pt had CT of back. If pain persists Dr. Velasquez will perform epidural steroid injection on Saturday. Discussed above with Dr. Velasquez and RN. Thank you, Han Crow Past Patient History - Infectious Disease Hx of Infectious Diseases: None - Past Medical History & Family History Past Medical History?: Yes - Past Social History Smoking Status: Never Smoked - CARDIAC Hx Congestive Heart Failure: Yes Hx Hypertension: Yes - PULMONARY Hx Asthma: Yes Hx Chronic Obstructive Pulmonary Disease (COPD): Yes Hx Pneumonia: Yes - NEUROLOGICAL Hx Neurological Disorder: Yes (Myastenia Gravis) - HEENT Hx HEENT Problems: No - RENAL Hx Chronic Kidney Disease: No - ENDOCRINE/METABOLIC Hx Endocrine Disorders: No - HEMATOLOGICAL/ONCOLOGICAL Hx Anemia: Yes Hx Human Immunodeficiency Virus (HIV): No - INTEGUMENTARY Hx Dermatological Problems: No - MUSCULOSKELETAL/RHEUMATOLOGICAL Hx Arthritis: Yes (severe L-spine) Hx Falls: No Hx Osteoporosis: Yes - GASTROINTESTINAL Hx Gastritis: Yes - GENITOURINARY/GYNECOLOGICAL Hx Genitourinary Disorders: No Hx Urinary Tract Infection: Yes - PSYCHIATRIC Hx Anxiety: Yes - SURGICAL HISTORY Hx Surgeries: Yes Hx Vascular Access Device: No (Sree cath LR IJ) Other/Comment: Sree cath removed 07/27/2014 surgery on left leg, HERNIA REPAIR - ANESTHESIA Hx Anesthesia: Yes Hx Anesthesia Reactions: No Hx Malignant Hyperthermia: No Meds Allergies/Adverse Reactions: Allergies Allergy/AdvReac Type Severity Reaction Status Date / Time No Known Allergies Allergy Verified 07/08/18 08:14 - Medications Medications: Current Medications Acetaminophen/Codeine Phosphate (Tylenol/Codeine 300 Mg/30 Mg) 1 tab PO Q6 PRN PRN Reason: Pain ( scale 1-5 ) Last Admin: 08/16/18 14:05 Dose: 1 tab Albuterol (Ventolin Hfa 90 Mcg/Actuation (8 G)) 2 puff IH Q4 PRN PRN Reason: Shortness of Breath Amlodipine Besylate (Norvasc) 5 mg PO DAILY [facility] Last Admin: 08/16/18 08:33 Dose: 5 mg Calcium/Vitamin D (Oyster Shell Calcium/Vitamin D 500 Mg-200 Iu) 1 tab PO BID [facility] Last Admin: 08/16/18 16:15 Dose: 1 tab Cyanocobalamin (Vitamin B-12) 250 mcg PO DAILY [facility] Last Admin: 08/16/18 08:34 Dose: 250 mcg Ferrous Sulfate (Feosol) 325 mg PO DAILY [facility] Last Admin: 08/16/18 08:32 Dose: 325 mg Hydromorphone HCl (Dilaudid) 1 mg IVP Q6 PRN PRN Reason: pain 6-10 Last Admin: 08/15/18 19:47 Dose: 1 mg Losartan Potassium (Cozaar) 50 mg PO DAILY [facility] Last Admin: 08/16/18 08:31 Dose: 50 mg Metoprolol Tartrate (Lopressor) 50 mg PO Q12 [facility] Last Admin: 08/16/18 20:43 Dose: 50 mg Naproxen (Naproxen) 500 mg PO Q12 [facility] Last Admin: 08/16/18 20:42 Dose: 500 mg Pantoprazole Sodium (Protonix Ec Tab) 40 mg PO DAILY [facility] Last Admin: 08/16/18 08:34 Dose: 40 mg Prednisone (Prednisone Tab) 10 mg PO DAILY [facility] Last Admin: 08/16/18 08:37 Dose: 10 mg Pyridostigmine [place] (Mestinon Tab) 60 mg PO Q8 [facility] Last Admin: 08/16/18 16:14 Dose: 60 mg Sertraline HCl (Zoloft) 50 mg PO DAILY [facility] Last Admin: 08/16/18 08:34 Dose: 50 mg Results - Vital Signs Recent Vital Signs: Last Vital Signs Temp 97.5 F L 08/16/18 16:28 Pulse 75 08/16/18 21:55 Resp 18 08/16/18 16:28 BP 168/71 H 08/16/18 21:55 Pulse Ox 93 L 08/16/18 16:28 - Labs Result Diagrams: 08/15/18 11:21 08/15/18 11:21
--- NOTE | 2018-08-17 00:12 | CP.PCM.CON ---
History of Present Illness - History of Present Illness History of Present Illness: 88 year old female with a history of osteoporosis, osteoarthrtis, chronic back pain, myasthenia gravis, admitted with back pain. The patient received IVIG q2 weeks for her myasthenia gravis. She is due Saturday next week. She denies weakness. Past medical history: osteoporosis, osteoarthrtis, chronic back pain, myasthenia gravis Past surgical history: Denies Family history: Denies hematologic and oncologic problems Social history: Denies tobacco, alcohol, and illicit drug use. Allergies: NKA Review of systems: All remaining review of systems including HEENT, cardiovascular, respiratory, gastointestinal, genitourinary, musculoskeletal, dermatologic, neurologic, and psychiatric are negative unless mentioned in the HPI. Past Patient History - Infectious Disease Hx of Infectious Diseases: None - Past Medical History & Family History Past Medical History?: Yes - Past Social History Smoking Status: Never Smoked - CARDIAC Hx Congestive Heart Failure: Yes Hx Hypertension: Yes - PULMONARY Hx Asthma: Yes Hx Chronic Obstructive Pulmonary Disease (COPD): Yes Hx Pneumonia: Yes - NEUROLOGICAL Hx Neurological Disorder: Yes (Myastenia Gravis) - HEENT Hx HEENT Problems: No - RENAL Hx Chronic Kidney Disease: No - ENDOCRINE/METABOLIC Hx Endocrine Disorders: No - HEMATOLOGICAL/ONCOLOGICAL Hx Anemia: Yes Hx Human Immunodeficiency Virus (HIV): No - INTEGUMENTARY Hx Dermatological Problems: No - MUSCULOSKELETAL/RHEUMATOLOGICAL Hx Arthritis: Yes (severe L-spine) Hx Falls: No Hx Osteoporosis: Yes - GASTROINTESTINAL Hx Gastritis: Yes - GENITOURINARY/GYNECOLOGICAL Hx Genitourinary Disorders: No Hx Urinary Tract Infection: Yes - PSYCHIATRIC Hx Anxiety: Yes - SURGICAL HISTORY Hx Surgeries: Yes Hx Vascular Access Device: No (Sree cath LR IJ) Other/Comment: Sree cath removed 07/27/2014 surgery on left leg, HERNIA REPAIR - ANESTHESIA Hx Anesthesia: Yes Hx Anesthesia Reactions: No Hx Malignant Hyperthermia: No Meds Allergies/Adverse Reactions: Allergies Allergy/AdvReac Type Severity Reaction Status Date / Time No Known Allergies Allergy Verified 07/08/18 08:14 - Medications Medications: Current Medications Acetaminophen/Codeine Phosphate (Tylenol/Codeine 300 Mg/30 Mg) 1 tab PO Q6 PRN PRN Reason: Pain ( scale 1-5 ) Last Admin: 08/16/18 14:05 Dose: 1 tab Albuterol (Ventolin Hfa 90 Mcg/Actuation (8 G)) 2 puff IH Q4 PRN PRN Reason: Shortness of Breath Amlodipine Besylate (Norvasc) 5 mg PO DAILY [facility] Last Admin: 08/16/18 08:33 Dose: 5 mg Calcium/Vitamin D (Oyster Shell Calcium/Vitamin D 500 Mg-200 Iu) 1 tab PO BID [facility] Last Admin: 08/16/18 16:15 Dose: 1 tab Cyanocobalamin (Vitamin B-12) 250 mcg PO DAILY [facility] Last Admin: 08/16/18 08:34 Dose: 250 mcg Ferrous Sulfate (Feosol) 325 mg PO DAILY [facility] Last Admin: 08/16/18 08:32 Dose: 325 mg Hydromorphone HCl (Dilaudid) 1 mg IVP Q6 PRN PRN Reason: pain 6-10 Last Admin: 08/15/18 19:47 Dose: 1 mg Losartan Potassium (Cozaar) 50 mg PO DAILY [facility] Last Admin: 08/16/18 08:31 Dose: 50 mg Metoprolol Tartrate (Lopressor) 50 mg PO Q12 [facility] Last Admin: 08/16/18 20:43 Dose: 50 mg Naproxen (Naproxen) 500 mg PO Q12 [facility] Last Admin: 08/16/18 20:42 Dose: 500 mg Pantoprazole Sodium (Protonix Ec Tab) 40 mg PO DAILY [facility] Last Admin: 08/16/18 08:34 Dose: 40 mg Prednisone (Prednisone Tab) 10 mg PO DAILY [facility] Last Admin: 08/16/18 08:37 Dose: 10 mg Pyridostigmine [place] (Mestinon Tab) 60 mg PO Q8 [facility] Last Admin: 08/16/18 16:14 Dose: 60 mg Sertraline HCl (Zoloft) 50 mg PO DAILY [facility] Last Admin: 08/16/18 08:34 Dose: 50 mg Physical Exam - Head Exam Head Exam: ATRAUMATIC - Eye Exam Eye Exam: Normal appearance - ENT Exam ENT Exam: Mucous Membranes Dry - Respiratory Exam Respiratory Exam: NORMAL BREATHING PATTERN - Cardiovascular Exam Cardiovascular Exam: +S1, +S2 - GI/Abdominal Exam GI & Abdominal Exam: Normal Bowel Sounds - Extremities Exam Extremities exam: Positive for: normal inspection - Neurological Exam Neurological exam: Oriented x3 - Psychiatric Exam Psychiatric exam: Normal Affect, Normal Mood - Skin Skin Exam: Warm Results - Vital Signs Recent Vital Signs: Last Vital Signs Temp 97.5 F L 08/16/18 16:28 Pulse 75 08/16/18 21:55 Resp 18 08/16/18 16:28 BP 168/71 H 08/16/18 21:55 Pulse Ox 93 L 08/16/18 16:28 - Labs Result Diagrams: 08/15/18 11:21 08/15/18 11:21 Assessment & Plan (1) Anemia Assessment and Plan: mild, retic count, b12, folate, ferritin, FOBT to further characterize Status: Acute (2) Myasthenia gravis Assessment and Plan: outpatient IVIG; due Frances Thank you for this interesting consult. Status: Acute
[2018-08-17] MEDS: FLUTICASONE PROPION/SALMETEROL 113-14 IH SCH ×2 (08:43→21:28)
[2018-08-17] MEDS: Naproxen 500 MG TAB PO SCH ×2 (08:45→21:28)
[2018-08-17] MEDS: Calcium-Vit D 500 mg-200 Units Tab UD PO SCH ×2 (08:46→16:21)
[2018-08-17] MEDS: Pantoprazole 40 mg EC Tab PO SCH (08:47)
[2018-08-17] MEDS: CYANOCOBALAMIN (VITAMIN B-12) 250 MCG TABLET PO SCH (08:47)
[2018-08-17] MEDS: Acetaminophen-Codeine 300/30 mg Tab PO PRN (10:23)
[2018-08-17] MEDS: Lidocaine 5% Patch TD SCH ×2 (13:29→14:26)
[2018-08-18] MEDS: Lidocaine 5% Patch TD SCH ×2 (05:12→13:45)
--- NOTE | 2018-08-18 08:24 | CP.PCM.PN ---
Subjective - Date & Time of Evaluation Date of Evaluation: 08/18/18 Time of Evaluation: 08:15 - Subjective Subjective: 88 yo woman w/ acute on chronic lower back pain is referred for pain management. Patient complains of pain in the lower back radiating down both legs. She denies recent falls or trauma. There was a mention of T10 compression fracture from an earlier X-ray, but the current pain seems to stem from lumbar region. CT scan showed no fractures but severe spondylotic changes. R/B/A were explained to the patient and her daughter, both agreed to trial of injection. Objective - Vital Signs/Intake and Output Vital Signs (last 24 hours): Temp Pulse Resp BP Pulse Ox 97.4 F L 80 18 152/72 H 97 08/18/18 00:32 08/18/18 00:32 08/18/18 00:32 08/18/18 00:32 08/18/18 00:32 - Medications Medications: Current Medications Acetaminophen/Codeine Phosphate (Tylenol/Codeine 300 Mg/30 Mg) 1 tab PO Q6 PRN PRN Reason: Pain ( scale 1-5 ) Last Admin: 08/17/18 10:23 Dose: 1 tab Albuterol (Ventolin Hfa 90 Mcg/Actuation (8 G)) 2 puff IH Q4 PRN PRN Reason: Shortness of Breath Alprazolam (Xanax) 0.5 mg PO Q12 [facility] Last Admin: 08/17/18 21:28 Dose: 0.5 mg Amlodipine Besylate (Norvasc) 5 mg PO DAILY [facility] Last Admin: 08/17/18 08:46 Dose: 5 mg Calcium/Vitamin D (Oyster Shell Calcium/Vitamin D 500 Mg-200 Iu) 1 tab PO BID [facility] Last Admin: 08/17/18 16:21 Dose: 1 tab Cyanocobalamin (Vitamin B-12) 250 mcg PO DAILY [facility] Last Admin: 08/17/18 08:47 Dose: 250 mcg Cyclobenzaprine HCl (Flexeril) 5 mg PO HS [facility] Last Admin: 08/17/18 21:28 Dose: 5 mg Ferrous Sulfate (Feosol) 325 mg PO DAILY [facility] Last Admin: 08/17/18 08:45 Dose: 325 mg Hydromorphone HCl (Dilaudid) 1 mg IVP Q6 PRN PRN Reason: pain 6-10 Last Admin: 08/15/18 19:47 Dose: 1 mg Lidocaine (Lidoderm) 2 ea TD DAILY [facility] Last Admin: 08/17/18 14:26 Dose: 2 ea Losartan Potassium (Cozaar) 100 mg PO DAILY [facility] Last Admin: 08/17/18 13:28 Dose: 100 mg Metoprolol Tartrate (Lopressor) 50 mg PO Q12 [facility] Last Admin: 08/17/18 21:29 Dose: 50 mg Naproxen (Naproxen) 500 mg PO Q12 [facility] Last Admin: 08/17/18 21:28 Dose: 500 mg Pantoprazole Sodium (Protonix Ec Tab) 40 mg PO DAILY [facility] Last Admin: 08/17/18 08:47 Dose: 40 mg Prednisone (Prednisone Tab) 10 mg PO DAILY [facility] Last Admin: 08/17/18 08:47 Dose: 10 mg Pyridostigmine [place] (Mestinon Tab) 60 mg PO Q8 [facility] Last Admin: 08/18/18 00:19 Dose: 60 mg Sertraline HCl (Zoloft) 50 mg PO DAILY [facility] Last Admin: 08/17/18 08:47 Dose: 50 mg - Labs Labs: 08/15/18 11:21 08/15/18 11:21 - Back Exam Back Exam: paraspinal tenderness, vertebral tenderness Assessment and Plan - Assessment and Plan (Free Text) Assessment: 88 yo w/ lumbar spondylosis. She has advanced disease which may not respond to injection, but it's a worthwhile attempt as she's not a candidate for surgery or opioid therapy. - injection today - PT eval
[2018-08-18] MEDS ORDERED: Propofol 10 mg/ml Inj (20 ML) ONE (08:31)
[2018-08-18] MEDS ORDERED: Lidocaine 1% Inj (20ml) ONE (08:47)
[2018-08-18] MEDS ORDERED: MethylPREDNISolone Depo 40 mg/ml Inj ONE (08:47)
[2018-08-18] MEDS ORDERED: Iohexol 300 10 ML ONE (08:47)
[2018-08-18] MEDS ORDERED: Bupivacaine 0.5% Inj(30mL) ONE (08:47)
--- NOTE | 2018-08-18 09:05 | CP.PCM.HP ---
History of Present Illness - History of Present Illness History of Present Illness: This is an 88 y/o female admitted of worsening of lower and mid back pain in the past few days affecting her gait and mobility. She has a x of myasthenia gravis and has been stable with that and follows up with Dr Caba. She denies having any recent fall or trauma. Recent imaging showed diffused deg disc disease, lumbar stenosis. CT scan of the LS spine showed diffused deg disc disease and multi level umbar stenosis. Present on Admission - Present on Admission Any Indicators Present on Admission: No History of DVT/PE: No History of Uncontrolled Diabetes: No Urinary Catheter: No Decubitus Ulcer Present: No Review of Systems - Musculoskeletal Musculoskeletal: Abnormal Gait, Arthralgias, Back Pain Past Patient History - Infectious Disease Hx of Infectious Diseases: None - Past Medical History & Family History Past Medical History?: Yes - Past Social History Smoking Status: Never Smoked - CARDIAC Hx Congestive Heart Failure: Yes Hx Hypertension: Yes - PULMONARY Hx Asthma: Yes Hx Chronic Obstructive Pulmonary Disease (COPD): Yes Hx Pneumonia: Yes - NEUROLOGICAL Hx Neurological Disorder: Yes (Myastenia Gravis) - HEENT Hx HEENT Problems: No - RENAL Hx Chronic Kidney Disease: No - ENDOCRINE/METABOLIC Hx Endocrine Disorders: No - HEMATOLOGICAL/ONCOLOGICAL Hx Anemia: Yes Hx Human Immunodeficiency Virus (HIV): No - INTEGUMENTARY Hx Dermatological Problems: No - MUSCULOSKELETAL/RHEUMATOLOGICAL Hx Arthritis: Yes (severe L-spine) Hx Falls: No Hx Osteoporosis: Yes - GASTROINTESTINAL Hx Gastritis: Yes - GENITOURINARY/GYNECOLOGICAL Hx Genitourinary Disorders: No Hx Urinary Tract Infection: Yes - PSYCHIATRIC Hx Anxiety: Yes - SURGICAL HISTORY Hx Surgeries: Yes Hx Vascular Access Device: No (Sree cath LR IJ) Other/Comment: Sree cath removed 07/27/2014 surgery on left leg, HERNIA REPAIR - ANESTHESIA Hx Anesthesia: Yes Hx Anesthesia Reactions: No Hx Malignant Hyperthermia: No Meds Allergies/Adverse Reactions: Allergies Allergy/AdvReac Type Severity Reaction Status Date / Time No Known Allergies Allergy Verified 07/08/18 08:14 Physical Exam - Head Exam Head Exam: NORMAL INSPECTION - Eye Exam Eye Exam: Normal appearance - ENT Exam ENT Exam: Mucous Membranes Moist - Respiratory Exam Respiratory Exam: Clear to Auscultation Bilateral - Cardiovascular Exam Cardiovascular Exam: REGULAR RHYTHM - GI/Abdominal Exam GI & Abdominal Exam: Normal Bowel Sounds - Back Exam Back exam: paraspinal tenderness, vertebral tenderness - Neurological Exam Neurological exam: Alert, Oriented x3 - Psychiatric Exam Psychiatric exam: Anxious Results - Vital Signs Recent Vital Signs: Last Vital Signs Temp 97.7 F 08/18/18 08:36 Pulse 82 08/18/18 08:36 Resp 20 08/18/18 08:36 BP 184/82 H 08/18/18 08:36 Pulse Ox 95 08/18/18 08:36 - Labs Result Diagrams: 08/15/18 11:21 08/15/18 11:21 Assessment & Plan (1) Intractable low back pain Status: Acute (2) Neurologic gait dysfunction Status: Acute (3) Anxiety Status: Acute Priority: Medium (4) Myasthenia Status: Acute (5) Lumbar stenosis Status: Acute (6) Osteoarthritis Status: Acute - Assessment and Plan (Free Text) Plan: pain meds start phjys therapy cont all meds anxiolytic pain mgt eval
--- NOTE | 2018-08-18 09:18 | CP.PCM.PN ---
Subjective - Date & Time of Evaluation Date of Evaluation: 08/16/18 Time of Evaluation: 11:00 - Subjective Subjective: Patient has difficulty transferring from bed to chair. She was able to ambulate with difficulty with a walker at home. Has a lot of pain in the LS area nad is very worried and anxious about her condition. Objective - Vital Signs/Intake and Output Vital Signs (last 24 hours): Temp Pulse Resp BP Pulse Ox 97.7 F 82 20 184/82 H 95 08/18/18 08:36 08/18/18 08:36 08/18/18 08:36 08/18/18 08:36 08/18/18 08:36 - Medications Medications: Current Medications Acetaminophen/Codeine Phosphate (Tylenol/Codeine 300 Mg/30 Mg) 1 tab PO Q6 PRN PRN Reason: Pain ( scale 1-5 ) Last Admin: 08/17/18 10:23 Dose: 1 tab Albuterol (Ventolin Hfa 90 Mcg/Actuation (8 G)) 2 puff IH Q4 PRN PRN Reason: Shortness of Breath Alprazolam (Xanax) 0.5 mg PO Q12 [facility] Last Admin: 08/17/18 21:28 Dose: 0.5 mg Amlodipine Besylate (Norvasc) 5 mg PO DAILY [facility] Last Admin: 08/18/18 08:33 Dose: 5 mg Calcium/Vitamin D (Oyster Shell Calcium/Vitamin D 500 Mg-200 Iu) 1 tab PO BID [facility] Last Admin: 08/17/18 16:21 Dose: 1 tab Cyanocobalamin (Vitamin B-12) 250 mcg PO DAILY [facility] Last Admin: 08/17/18 08:47 Dose: 250 mcg Cyclobenzaprine HCl (Flexeril) 5 mg PO HS [facility] Last Admin: 08/17/18 21:28 Dose: 5 mg Ferrous Sulfate (Feosol) 325 mg PO DAILY [facility] Last Admin: 08/17/18 08:45 Dose: 325 mg Hydromorphone HCl (Dilaudid) 1 mg IVP Q6 PRN PRN Reason: pain 6-10 Last Admin: 08/15/18 19:47 Dose: 1 mg Lidocaine (Lidoderm) 2 ea TD DAILY [facility] Last Admin: 08/17/18 14:26 Dose: 2 ea Losartan Potassium (Cozaar) 100 mg PO DAILY [facility] Last Admin: 08/18/18 08:33 Dose: 100 mg Metoprolol Tartrate (Lopressor) 50 mg PO Q12 [facility] Last Admin: 08/18/18 08:32 Dose: 50 mg Naproxen (Naproxen) 500 mg PO Q12 [facility] Last Admin: 08/17/18 21:28 Dose: 500 mg Pantoprazole Sodium (Protonix Ec Tab) 40 mg PO DAILY [facility] Last Admin: 08/17/18 08:47 Dose: 40 mg Prednisone (Prednisone Tab) 10 mg PO DAILY [facility] Last Admin: 08/17/18 08:47 Dose: 10 mg Pyridostigmine [place] (Mestinon Tab) 60 mg PO Q8 [facility] Last Admin: 08/18/18 08:32 Dose: 60 mg Sertraline HCl (Zoloft) 50 mg PO DAILY [facility] Last Admin: 08/17/18 08:47 Dose: 50 mg - Labs Labs: 08/15/18 11:21 08/15/18 11:21 - Head Exam Head Exam: NORMAL INSPECTION - Eye Exam Eye Exam: Normal appearance - Respiratory Exam Respiratory Exam: Clear to Ausculation Bilateral - Cardiovascular Exam Cardiovascular Exam: REGULAR RHYTHM - GI/Abdominal Exam GI & Abdominal Exam: Normal Bowel Sounds Assessment and Plan (1) Intractable low back pain Status: Acute (2) Neurologic gait dysfunction Status: Acute (3) Anxiety Status: Acute (4) Myasthenia Status: Acute (5) Lumbar stenosis Status: Acute (6) Osteoarthritis Status: Acute - Assessment and Plan (Free Text) Plan: Cont meds Con ttx Cont PT pain meds.
[2018-08-18] MEDS ORDERED: Lactated Ringer's 500 ML IV ONE (09:19)
--- NOTE | 2018-08-18 09:20 | CP.PCM.PN ---
Subjective - Date & Time of Evaluation Date of Evaluation: 08/17/18 Time of Evaluation: 11:30 - Subjective Subjective: Patient is stable Has no chest pain or SOB afberile. Objective - Vital Signs/Intake and Output Vital Signs (last 24 hours): Temp Pulse Resp BP Pulse Ox 97.7 F 82 20 184/82 H 95 08/18/18 08:36 08/18/18 08:36 08/18/18 08:36 08/18/18 08:36 08/18/18 08:36 - Medications Medications: Current Medications Acetaminophen/Codeine Phosphate (Tylenol/Codeine 300 Mg/30 Mg) 1 tab PO Q6 PRN PRN Reason: Pain ( scale 1-5 ) Last Admin: 08/17/18 10:23 Dose: 1 tab Albuterol (Ventolin Hfa 90 Mcg/Actuation (8 G)) 2 puff IH Q4 PRN PRN Reason: Shortness of Breath Alprazolam (Xanax) 0.5 mg PO Q12 [facility] Last Admin: 08/17/18 21:28 Dose: 0.5 mg Amlodipine Besylate (Norvasc) 5 mg PO DAILY [facility] Last Admin: 08/18/18 08:33 Dose: 5 mg Calcium/Vitamin D (Oyster Shell Calcium/Vitamin D 500 Mg-200 Iu) 1 tab PO BID [facility] Last Admin: 08/17/18 16:21 Dose: 1 tab Cyanocobalamin (Vitamin B-12) 250 mcg PO DAILY [facility] Last Admin: 08/17/18 08:47 Dose: 250 mcg Cyclobenzaprine HCl (Flexeril) 5 mg PO HS [facility] Last Admin: 08/17/18 21:28 Dose: 5 mg Ferrous Sulfate (Feosol) 325 mg PO DAILY [facility] Last Admin: 08/17/18 08:45 Dose: 325 mg Hydromorphone HCl (Dilaudid) 1 mg IVP Q6 PRN PRN Reason: pain 6-10 Last Admin: 08/15/18 19:47 Dose: 1 mg Lidocaine (Lidoderm) 2 ea TD DAILY [facility] Last Admin: 08/17/18 14:26 Dose: 2 ea Losartan Potassium (Cozaar) 100 mg PO DAILY [facility] Last Admin: 08/18/18 08:33 Dose: 100 mg Metoprolol Tartrate (Lopressor) 50 mg PO Q12 [facility] Last Admin: 08/18/18 08:32 Dose: 50 mg Naproxen (Naproxen) 500 mg PO Q12 [facility] Last Admin: 08/17/18 21:28 Dose: 500 mg Pantoprazole Sodium (Protonix Ec Tab) 40 mg PO DAILY [facility] Last Admin: 08/17/18 08:47 Dose: 40 mg Prednisone (Prednisone Tab) 10 mg PO DAILY [facility] Last Admin: 08/17/18 08:47 Dose: 10 mg Pyridostigmine [place] (Mestinon Tab) 60 mg PO Q8 [facility] Last Admin: 08/18/18 08:32 Dose: 60 mg Sertraline HCl (Zoloft) 50 mg PO DAILY [facility] Last Admin: 08/17/18 08:47 Dose: 50 mg - Labs Labs: 08/15/18 11:21 08/15/18 11:21 - Head Exam Head Exam: NORMAL INSPECTION - Eye Exam Eye Exam: Normal appearance - ENT Exam ENT Exam: Mucous Membranes Moist - Respiratory Exam Respiratory Exam: Clear to Ausculation Bilateral - Cardiovascular Exam Cardiovascular Exam: REGULAR RHYTHM - GI/Abdominal Exam GI & Abdominal Exam: Soft, Normal Bowel Sounds Assessment and Plan (1) Intractable low back pain Status: Acute (2) Neurologic gait dysfunction Status: Acute (3) Anxiety Status: Acute (4) Myasthenia Status: Acute (5) Lumbar stenosis Status: Acute (6) Osteoarthritis Status: Acute - Assessment and Plan (Free Text) Plan: Con tmeds Con ttx Cont PT pain meds follow up with Pain mgt
[2018-08-18] MEDS ORDERED: Acetaminophen 650mg/20.3ml solution UD PO PRN (09:34)
--- NOTE | 2018-08-18 12:59 | RAD ---
Date of service: 08/18/2018 PROCEDURE: Fluoroscopy up to 1 hr. HISTORY: PAIN MANAGEMENT COMPARISON: None TECHNIQUE: Standard protocol for this study/examination. FINDINGS: Total fluoroscopic time (continuous mode) utilized during the procedure 63.6 seconds. Total exam DLP: 24.76 (mGy). IMPRESSION: Less than 1 hr fluoroscopic assistance provided during performance of the procedure.
[2018-08-18] MEDS: FLUTICASONE PROPION/SALMETEROL 113-14 IH SCH ×2 (13:44→21:00)
[2018-08-18] MEDS: Naproxen 500 MG TAB PO SCH ×2 (13:47→20:59)
[2018-08-18] MEDS: Calcium-Vit D 500 mg-200 Units Tab UD PO SCH ×2 (13:47→16:38)
[2018-08-18] MEDS: Pantoprazole 40 mg EC Tab PO SCH (13:48)
[2018-08-18] MEDS: CYANOCOBALAMIN (VITAMIN B-12) 250 MCG TABLET PO SCH (13:48)
--- NOTE | 2018-08-18 18:50 | CP.PCM.PN ---
Subjective - Date & Time of Evaluation Date of Evaluation: 08/18/18 Time of Evaluation: 09:00 - Subjective Subjective: patient in procedure at time of rounds chart reviewed and discussed with house staff continue management as ordered Objective - Vital Signs/Intake and Output Vital Signs (last 24 hours): Temp Pulse Resp BP Pulse Ox 97.4 F L 80 20 143/74 96 08/18/18 16:24 08/18/18 16:36 08/18/18 16:24 08/18/18 16:24 08/18/18 16:36 Intake and Output: 08/18/18 08/18/18 06:59 18:59 Intake Total 50 Balance 50 - Medications Medications: Current Medications Acetaminophen/Codeine Phosphate (Tylenol/Codeine 300 Mg/30 Mg) 1 tab PO Q6 PRN PRN Reason: Pain ( scale 1-5 ) Last Admin: 08/17/18 10:23 Dose: 1 tab Albuterol (Ventolin Hfa 90 Mcg/Actuation (8 G)) 2 puff IH Q4 PRN PRN Reason: Shortness of Breath Alprazolam (Xanax) 0.5 mg PO Q12 [facility] Last Admin: 08/18/18 13:48 Dose: Not Given Amlodipine Besylate (Norvasc) 5 mg PO DAILY [facility] Last Admin: 08/18/18 08:33 Dose: 5 mg Calcium/Vitamin D (Oyster Shell Calcium/Vitamin D 500 Mg-200 Iu) 1 tab PO BID [facility] Last Admin: 08/18/18 16:38 Dose: 1 tab Cyanocobalamin (Vitamin B-12) 250 mcg PO DAILY [facility] Last Admin: 08/18/18 13:48 Dose: 250 mcg Cyclobenzaprine HCl (Flexeril) 5 mg PO HS [facility] Last Admin: 08/17/18 21:28 Dose: 5 mg Ferrous Sulfate (Feosol) 325 mg PO DAILY [facility] Last Admin: 08/18/18 13:45 Dose: 325 mg Hydromorphone HCl (Dilaudid) 1 mg IVP Q6 PRN PRN Reason: pain 6-10 Last Admin: 08/15/18 19:47 Dose: 1 mg Lidocaine (Lidoderm) 2 ea TD DAILY [facility] Last Admin: 08/18/18 13:45 Dose: 2 ea Losartan Potassium (Cozaar) 100 mg PO DAILY [facility] Last Admin: 08/18/18 08:33 Dose: 100 mg Metoprolol Tartrate (Lopressor) 50 mg PO Q12 [facility] Last Admin: 08/18/18 08:32 Dose: 50 mg Naproxen (Naproxen) 500 mg PO Q12 [facility] Last Admin: 08/18/18 13:47 Dose: Not Given Pantoprazole Sodium (Protonix Ec Tab) 40 mg PO DAILY [facility] Last Admin: 08/18/18 13:48 Dose: 40 mg Prednisone (Prednisone Tab) 10 mg PO DAILY [facility] Last Admin: 08/18/18 13:47 Dose: 10 mg Pyridostigmine [place] (Mestinon Tab) 60 mg PO Q8 [facility] Last Admin: 08/18/18 16:37 Dose: 60 mg Sertraline HCl (Zoloft) 50 mg PO DAILY [facility] Last Admin: 08/18/18 13:50 Dose: 50 mg - Labs Labs: 08/15/18 11:21 08/15/18 11:21
--- NOTE | 2018-08-18 21:07 | OP ---
PROCEDURE DATE: 08/18/2018 PREOPERATIVE DIAGNOSIS: Lumbar spondylosis. POSTOPERATIVE DIAGNOSIS: Lumbar spondylosis. PROCEDURE: Right L4-L5 transforaminal epidural steroid injection and bilateral L4 and L5 medial branch nerve blocks. ANESTHESIOLOGIST: Dr. Valdes. SURGEON: Checo Velasquez MD TYPE OF ANESTHESIA: Monitored anesthesia care. COMPLICATIONS: None. SPECIMEN: None. DESCRIPTION OF PROCEDURE: Procedure is as follows. After risks, benefits, alternatives were explained to the patient and her daughter, both consented to the procedure. The patient denied any recent infection, bleeding tendencies, or being on anticoagulants. A decision was then made to proceed to the OR. The patient was placed on the fluoroscopy table in a prone position with two pillows underneath her abdomen. Her back was prepped and draped in the usual sterile fashion, and sterile technique was adhered to during the entire procedure. The L4 vertebral level was first identified in anteroposterior view. Angulation towards the right at approximately 20 degrees was used to maximize the visualization of the right L4 pedicle. The skin overlying the 6 o'clock position of the pedicle was then infiltrated with 1% lidocaine using a 25-gauge needle. Subsequently, a 22-gauge 3-1/2-inch spinal needle was incrementally advanced under fluoroscopic guidance until tip of the needle was in contact with the pedicle. Then, several attempts were done to navigate the tip of the needle into the intervertebral foramen. However due to extensive spondylotic disease and possible facet fusion at this level, the epidural space was ultimately not able to be accessed. A decision was then made to deposit medication underneath the pedicle outside the foramen. Then, the medial branch nerve blocks were performed. The procedure was done on the right side first. The skin overlying the L4 and L5 pedicles were then infiltrate with 1% lidocaine using 25-gauge needle. Subsequently, a 22-gauge 3-1/2-inch spinal needle was incrementally advanced under fluoroscopic guidance until tip of the needle made bony contact with the intersection of the facet above the superior articular process and the transverse process of the pedicle. After satisfactory positioning of both needles, approximately 3 mL a 0.5% Marcaine and Depo-Medrol mixture was injected. The needle was then removed and same exact procedure was performed on the contralateral left side using the same medications and techniques. At the end of the case, the patient's back was cleaned and dry bandage was applied. The patient was then transferred to the recovery area in good condition without any signs of [employer] toxicity or any neurological deficit. She will be followed in office in approximately two to four weeks. En-Barney Velasquez MD Psychiatric # [id number]
[2018-08-19] MEDS: Lidocaine 5% Patch TD SCH (08:48)
[2018-08-19] MEDS: Calcium-Vit D 500 mg-200 Units Tab UD PO SCH ×2 (08:49→16:32)
[2018-08-19] MEDS: Pantoprazole 40 mg EC Tab PO SCH (08:50)
[2018-08-19] MEDS: CYANOCOBALAMIN (VITAMIN B-12) 250 MCG TABLET PO SCH (08:50)
[2018-08-19] MEDS: Naproxen 500 MG TAB PO SCH ×2 (08:50→20:57)
--- NOTE | 2018-08-19 10:06 | CP.PCM.PN ---
Subjective - Date & Time of Evaluation Date of Evaluation: 08/19/18 Time of Evaluation: 10:00 - Subjective Subjective: Patient is sitting in bed, complaining of pain in the right lateral hip. According to her, she felt relief of the pain in her lower back and down the right leg, but the pain in the right lateral hip, upper buttock region remains severe. She was able to ambulate better yesterday. Patient is s/p bilateral lumbar medial branch nerve blocks and attempted right L4-5 transforaminal epidural steroid injection. Patient has severe diseases with almost non-existent disc space, interlaminar spaces and foraminal openings due to DJD and facet hypertrophy. Her current pain may represent greater trochanter bursitis, which would certainly be easier to treat than attemping another epidural. Objective - Vital Signs/Intake and Output Vital Signs (last 24 hours): Temp Pulse Resp BP Pulse Ox 98 F 81 20 188/75 H 95 08/19/18 08:12 08/19/18 08:12 08/19/18 08:12 08/19/18 08:12 08/19/18 08:12 - Medications Medications: Current Medications Acetaminophen/Codeine Phosphate (Tylenol/Codeine 300 Mg/30 Mg) 1 tab PO Q6 PRN PRN Reason: Pain ( scale 1-5 ) Last Admin: 08/17/18 10:23 Dose: 1 tab Albuterol (Ventolin Hfa 90 Mcg/Actuation (8 G)) 2 puff IH Q4 PRN PRN Reason: Shortness of Breath Alprazolam (Xanax) 0.5 mg PO Q12 [facility] Last Admin: 08/19/18 08:54 Dose: 0.5 mg Amlodipine Besylate (Norvasc) 5 mg PO DAILY [facility] Last Admin: 08/19/18 08:51 Dose: 5 mg Calcium/Vitamin D (Oyster Shell Calcium/Vitamin D 500 Mg-200 Iu) 1 tab PO BID [facility] Last Admin: 08/19/18 08:49 Dose: 1 tab Cyanocobalamin (Vitamin B-12) 250 mcg PO DAILY [facility] Last Admin: 08/19/18 08:50 Dose: 250 mcg Cyclobenzaprine HCl (Flexeril) 5 mg PO HS [facility] Last Admin: 08/18/18 21:00 Dose: 5 mg Ferrous Sulfate (Feosol) 325 mg PO DAILY [facility] Last Admin: 08/19/18 08:52 Dose: 325 mg Hydromorphone HCl (Dilaudid) 1 mg IVP Q6 PRN PRN Reason: pain 6-10 Last Admin: 08/15/18 19:47 Dose: 1 mg Lidocaine (Lidoderm) 2 ea TD DAILY [facility] Last Admin: 08/19/18 08:48 Dose: 2 ea Losartan Potassium (Cozaar) 100 mg PO DAILY [facility] Last Admin: 08/19/18 08:51 Dose: 100 mg Metoprolol Tartrate (Lopressor) 50 mg PO Q12 [facility] Last Admin: 08/19/18 08:49 Dose: 50 mg Naproxen (Naproxen) 500 mg PO Q12 [facility] Last Admin: 08/19/18 08:50 Dose: 500 mg Pantoprazole Sodium (Protonix Ec Tab) 40 mg PO DAILY [facility] Last Admin: 08/19/18 08:50 Dose: 40 mg Prednisone (Prednisone Tab) 10 mg PO DAILY [facility] Last Admin: 08/19/18 08:51 Dose: 10 mg Pyridostigmine [place] (Mestinon Tab) 60 mg PO Q8 [facility] Last Admin: 08/19/18 08:49 Dose: 60 mg Sertraline HCl (Zoloft) 50 mg PO DAILY [facility] Last Admin: 08/19/18 08:52 Dose: 50 mg - Labs Labs: 08/15/18 11:21 08/15/18 11:21 - Extremities Exam Additional comments: TTP over right lateral buttock, right greater trochanter. Assessment and Plan - Assessment and Plan (Free Text) Assessment: 88 yo woman w/ extensive lumbar DJD. - consider right greater trochanter bursa injection - for IVIG today, dispo per primary - PT
[2018-08-19] MEDS ORDERED: MethylPREDNISolone Depo 40 mg/ml Inj ONE (10:53)
[2018-08-19] MEDS ORDERED: Bupivacaine HCl 0.5% PF (10 ml) Inj ONE (10:53)
[2018-08-19 11:35] LABS: BASO % 0.4 % (0.0-2.0); EOS % 0.5 % (0.0-4.0); HEMOGLOBIN 11.3 g/dL (12.0-16.0); LYMPH # 0.7 K/uL (1.0-4.3); LYMPH % 10.8 % (20.0-40.0); MEAN CELL VOLUME 98.1 fl (81.0-99.0); MEAN CORPUSCULAR HEMOGLOBIN 32.5 pg (27.0-31.0); MEAN CORPUSCULAR HGB CONC 33.1 g/dL (33.0-37.0); MEAN PLATELET VOLUME 8.6 fl (7.2-11.7); MONO # 0.9 K/uL (0.0-0.8); MONO % 13.8 % (0.0-10.0); NEUT # 4.9 K/uL (1.8-7.0); NEUT % 74.5 % (50.0-75.0); NRBC % 0.1 % (0.0-0.0); RBC 3.47 Mil/uL (3.80-5.20); RED CELL DISTRIBUTION WIDTH 13.6 % (11.5-14.5); WHITE BLOOD COUNT 6.5 K/uL (4.8-10.8)
[2018-08-19 11:46] LABS: ALB/GLOB RATIO 1.1 (1.0-2.1); ALBUMIN 3.7 g/dL (3.5-5.0); ALT/SGPT 25 U/L (9-52); AST/SGOT 34 U/L (14-36); BLOOD UREA NITROGEN 28 mg/dl (7-17); GFR NON-AFRICAN AMERICAN > 60
[2018-08-19] MEDS: FLUTICASONE PROPION/SALMETEROL 113-14 IH SCH ×2 (12:14→20:58)
[2018-08-19] MEDS: Acetaminophen-Codeine 300/30 mg Tab PO PRN (13:48)
[2018-08-19] MEDS: Sodium Chloride 0.9% 1,000 ML IV SCH (16:32)
[2018-08-20] MEDS: Sodium Chloride 0.9% 1,000 ML IV SCH ×4 (05:30→20:59)
[2018-08-20 06:59] LABS: BLOOD UREA NITROGEN 27 mg/dl (7-17); CALCIUM 8.8 mg/dL (8.4-10.2); GFR NON-AFRICAN AMERICAN > 60
--- NOTE | 2018-08-20 07:48 | CP.PCM.PN ---
Subjective - Date & Time of Evaluation Date of Evaluation: 08/19/18 Time of Evaluation: 12:00 - Subjective Subjective: Patient continues to have pain in the lower back. On Igglob tx Very anxious. Objective - Vital Signs/Intake and Output Vital Signs (last 24 hours): Temp Pulse Resp BP Pulse Ox 98.6 F 61 19 138/91 H 96 08/19/18 23:55 08/19/18 23:55 08/19/18 23:55 08/19/18 23:55 08/19/18 23:55 - Medications Medications: Current Medications Acetaminophen/Codeine Phosphate (Tylenol/Codeine 300 Mg/30 Mg) 1 tab PO Q6 PRN PRN Reason: Pain ( scale 1-5 ) Last Admin: 08/19/18 13:48 Dose: 1 tab Albuterol (Ventolin Hfa 90 Mcg/Actuation (8 G)) 2 puff IH Q4 PRN PRN Reason: Shortness of Breath Alprazolam (Xanax) 0.5 mg PO Q12 [facility] Last Admin: 08/19/18 20:57 Dose: 0.5 mg Amlodipine Besylate (Norvasc) 5 mg PO DAILY [facility] Last Admin: 08/19/18 08:51 Dose: 5 mg Calcium/Vitamin D (Oyster Shell Calcium/Vitamin D 500 Mg-200 Iu) 1 tab PO BID [facility] Last Admin: 08/19/18 16:32 Dose: 1 tab Cyanocobalamin (Vitamin B-12) 250 mcg PO DAILY [facility] Last Admin: 08/19/18 08:50 Dose: 250 mcg Cyclobenzaprine HCl (Flexeril) 5 mg PO HS [facility] Last Admin: 08/19/18 20:59 Dose: 5 mg Ferrous Sulfate (Feosol) 325 mg PO DAILY [facility] Last Admin: 08/19/18 08:52 Dose: 325 mg Hydromorphone HCl (Dilaudid) 1 mg IVP Q6 PRN PRN Reason: pain 6-10 Last Admin: 08/15/18 19:47 Dose: 1 mg Sodium Chloride (Sodium Chloride 0.9%) 1,000 mls @ 70 mls/hr IV .[id number] [facility] Stop: 08/20/18 14:20 Last Admin: 08/20/18 06:47 Dose: 70 mls/hr Lidocaine (Lidoderm) 2 ea TD DAILY [facility] Last Admin: 08/19/18 08:48 Dose: 2 ea Losartan Potassium (Cozaar) 100 mg PO DAILY [facility] Last Admin: 08/19/18 08:51 Dose: 100 mg Metoprolol Tartrate (Lopressor) 50 mg PO Q12 [facility] Last Admin: 08/19/18 20:57 Dose: 50 mg Naproxen (Naproxen) 500 mg PO Q12 [facility] Last Admin: 08/19/18 20:57 Dose: 500 mg Pantoprazole Sodium (Protonix Ec Tab) 40 mg PO DAILY [facility] Last Admin: 08/19/18 08:50 Dose: 40 mg Prednisone (Prednisone Tab) 10 mg PO DAILY [facility] Last Admin: 08/19/18 08:51 Dose: 10 mg Pyridostigmine Marion (Mestinon Tab) 60 mg PO Q8 [facility] Last Admin: 08/20/18 02:00 Dose: 60 mg Sertraline HCl (Zoloft) 50 mg PO DAILY [facility] Last Admin: 08/19/18 08:52 Dose: 50 mg - Labs Labs: 08/19/18 10:50 08/20/18 06:25 - Head Exam Head Exam: NORMAL INSPECTION - Eye Exam Eye Exam: Normal appearance - ENT Exam ENT Exam: Mucous Membranes Moist - Respiratory Exam Respiratory Exam: Clear to Ausculation Bilateral - Cardiovascular Exam Cardiovascular Exam: REGULAR RHYTHM - GI/Abdominal Exam GI & Abdominal Exam: Normal Bowel Sounds Assessment and Plan (1) Intractable low back pain Status: Acute (2) Neurologic gait dysfunction Status: Acute (3) Anxiety Status: Acute (4) Myasthenia Status: Acute (5) Lumbar stenosis Status: Acute (6) Osteoarthritis Status: Acute - Assessment and Plan (Free Text) Plan: Cont meds Cont tx Cont PT Pain mgt TCU eval
[2018-08-20] MEDS: FLUTICASONE PROPION/SALMETEROL 113-14 IH SCH ×2 (08:56→20:59)
[2018-08-20] MEDS: Naproxen 500 MG TAB PO SCH ×2 (08:59→20:58)
[2018-08-20] MEDS: Pantoprazole 40 mg EC Tab PO SCH (09:00)
[2018-08-20] MEDS: Calcium-Vit D 500 mg-200 Units Tab UD PO SCH ×2 (09:00→16:57)
[2018-08-20] MEDS: CYANOCOBALAMIN (VITAMIN B-12) 250 MCG TABLET PO SCH (09:01)
[2018-08-20] MEDS: Lidocaine 5% Patch TD SCH (13:02)
--- NOTE | 2018-08-20 17:20 | PQF ---
PROVIDER RESPONSE TEXT: Provider was unable to determine a response for this query. REVIEWER QUERY TEXT: COPD Specificity Physician?s Documentation Request This Form is Not a Permanent Document in the Medical Record Pt Name: DEMETRIUS OLIVER MR #: [id number] Payor: MEDICARE PART A Unit/Bed: [id number] Adm Date: 08/17/2018 5:21:00 PM Reviewer: Gisselle Anthony Ext. Query Date: 08/19/2018 10:30:17 AM COPD Specificity [id number] By submitting this query, we are merely seeking further clarification of documentation to accurately reflect all conditions that you are monitoring, evaluating, treating or that extend the hospitalizati on or utilize additional resources of care. Please utilize your independent clinical judgment when ad dressing the question(s) below. Dear Doctor Carrington Gustafson, The patient?s Clinical Indicators include: -- A hx. of COPD is documented in the H and P. Please specify the associated status/ condition (includ es suspected or probable) Such as: --Stable -- Bronchitis - acute -- Asthmatic - with /without status asthmaticus -- Exacerbation - acute -- Lower respiratory infection - acute -- Other, please specify ER : Respiratory: Negative for: Respiratory Distress -Albuterol IH Q4 PRN, Fluticasone 1 Puff IH Q12 PLEASE DOCUMENT ANY ADDITIONAL DIAGNOSES AND/OR SPECIFICITY IN THE PROGRESS NOTES AND/OR DISCHARGE SPRING MMARY. Clinically unable to determine/unknown Disagree with the above request Need to discuss Query created by: Gisselle Anthony on 08/19/2018 10:30 AM Electronically signed by: Carrington Gustafson 08/20/2018 5:17 PM
--- NOTE | 2018-08-20 17:20 | PQF ---
PROVIDER RESPONSE TEXT: Provider was unable to determine a response for this query. REVIEWER QUERY TEXT: CHF Acuity and Type Physician?s Documentation Request This Form is Not a Permanent Document in the Medical Record Pt Name: DEMETRIUS OLIVER MR #: [id number] Payor: MEDICARE PART A Unit/Bed: [id number] Adm Date: 08/17/2018 5:21:00 PM Reviewer: Gisselle Anthony Ext. Query Date: 08/19/2018 10:23:49 AM CHF Acuity and Type [id number] By submitting this query, we are merely seeking further clarification of documentation to accurately reflect all conditions that you are monitoring, evaluating, treating or that extend the hospitalizati on or utilize additional resources of care. Please utilize your independent clinical judgment when ad dressing the question(s) below. Dear Doctor Carrington Gustafson, The patient?s Clinical Indicators include: -- A hx. of Congestive Heart Failure is documented in the H and P. Please document the type and acuity (includes probable or suspected) if known: versus No CHF: hx. only and not a chronic condition. Such as: Type: -- Systolic -- Diastolic -- Combined -- Other, please specify Acuity: i.e. -- Chronic -- Other, please specify ER note:Respiratory: Negative for: Respiratory Distress -lopresor, PLEASE DOCUMENT ANY ADDITIONAL DIAGNOSES AND/OR SPECIFICITY IN THE PROGRESS NOTES AND/OR DISCHARGE SPRING MMARY. Clinically unable to determine/unknown Disagree with the above request Need to discuss Query created by: Gisselle Anthony on 08/19/2018 10:23 AM Electronically signed by: Carrington Gustafson 08/20/2018 5:17 PM
[2018-08-20 23:53] VITALS: RESP 18
[2018-08-21] MEDS: Sodium Chloride 0.9% 1,000 ML IV SCH (03:50)
[2018-08-21 07:04] LABS: BLOOD UREA NITROGEN 26 mg/dl (7-17); CALCIUM 8.5 mg/dL (8.4-10.2); GFR NON-AFRICAN AMERICAN > 60
[2018-08-21 07:33] VITALS: TEMP 97.6; O2SAT 95
[2018-08-21] MEDS: FLUTICASONE PROPION/SALMETEROL 113-14 IH SCH (08:20)
[2018-08-21] MEDS: Lidocaine 5% Patch TD SCH (08:21)
[2018-08-21] MEDS: Calcium-Vit D 500 mg-200 Units Tab UD PO SCH (08:24)
[2018-08-21] MEDS: CYANOCOBALAMIN (VITAMIN B-12) 250 MCG TABLET PO SCH (08:24)
[2018-08-21] MEDS: Pantoprazole 40 mg EC Tab PO SCH (08:24)
[2018-08-21] MEDS: Naproxen 500 MG TAB PO SCH (08:26)
[2018-08-21 13:32] VITALS: BP 125/58; PULSE 72
--- NOTE | 2018-08-21 15:45 | CP.PCM.DIS ---
Provider - Provider Date of Admission: 08/17/18 17:21 Attending physician: Vin Pedro MD Primary care physician: Vin Pedro MD Consults: 08/15/18 18:19 Hematology Oncology Consult Routine Comment: Consulting Provider: Danis Campos Consulting Physician: Danis Campos Reason for Consult: Myasthenia Gravis 08/16/18 12:11 Anesthesiology Consult Routine Comment: Pain energy management specialist Provider: Gretchen Velasquez Consulting Physician: Gretchen Velasquez Reason for Consult: Pain management Time Spent in preparation of Discharge (in minutes): 30 Diagnosis - Discharge Diagnosis (1) Degenerative disc disease, lumbar Status: Acute (2) Hyponatremia Status: Acute (3) Myasthenia gravis Status: Acute Hospital Course - Lab Results Lab Results: Most Recent Lab Values WBC 6.5 K/uL (4.8-10.8) 08/19/18 10:50 RBC 3.47 Mil/uL (3.80-5.20) L 08/19/18 10:50 Hgb 11.3 g/dL (12.0-16.0) L 08/19/18 10:50 Hct 34.1 % (34.0-47.0) 08/19/18 10:50 MCV 98.1 fl (81.0-99.0) 08/19/18 10:50 MCH 32.5 pg (27.0-31.0) H 08/19/18 10:50 MCHC 33.1 g/dL (33.0-37.0) 08/19/18 10:50 RDW 13.6 % (11.5-14.5) 08/19/18 10:50 Plt Count 352 K/uL (130-400) 08/19/18 10:50 MPV 8.6 fl (7.2-11.7) 08/19/18 10:50 Neut % (Auto) 74.5 % (50.0-75.0) 08/19/18 10:50 Lymph % (Auto) 10.8 % (20.0-40.0) L 08/19/18 10:50 [place] % (Auto) 13.8 % (0.0-10.0) H 08/19/18 10:50 Eos % (Auto) 0.5 % (0.0-4.0) 08/19/18 10:50 Baso % (Auto) 0.4 % (0.0-2.0) 08/19/18 10:50 Neut # (Auto) 4.9 K/uL (1.8-7.0) 08/19/18 10:50 Lymph # (Auto) 0.7 K/uL (1.0-4.3) L 08/19/18 10:50 [place] # (Auto) 0.9 K/uL (0.0-0.8) H 08/19/18 10:50 Eos # (Auto) 0.0 K/uL (0.0-0.7) 08/19/18 10:50 Baso # (Auto) 0.0 K/uL (0.0-0.2) 08/19/18 10:50 Sodium 130 mmol/l (132-148) L 08/21/18 06:30 Potassium 4.3 MMOL/L (3.6-5.0) 08/21/18 06:30 Chloride 96 mmol/L (98-107) L 08/21/18 06:30 Carbon Dioxide 28 mmol/L (22-30) 08/21/18 06:30 Anion Gap 10 (10-20) 08/21/18 06:30 BUN 26 mg/dl (7-17) H 08/21/18 06:30 Creatinine 0.7 mg/dl (0.7-1.2) 08/21/18 06:30 Est GFR ( Amer) > 60 08/21/18 06:30 Est GFR (Non-Af Amer) > 60 08/21/18 06:30 Random Glucose 91 mg/dL (65-105) 08/21/18 06:30 Calcium 8.5 mg/dL (8.4-10.2) 08/21/18 06:30 Total Bilirubin 0.7 mg/dl (0.2-1.3) 08/19/18 10:50 AST 34 U/L (14-36) 08/19/18 10:50 ALT 25 U/L (9-52) 08/19/18 10:50 Alkaline Phosphatase 101 U/L (38-126) 08/19/18 10:50 Total Creatine Kinase 37 U/L (30-135) 08/15/18 11:21 Total Protein 6.9 G/DL (6.3-8.2) 08/19/18 10:50 Albumin 3.7 g/dL (3.5-5.0) 08/19/18 10:50 Globulin 3.2 gm/dL (2.2-3.9) 08/19/18 10:50 Albumin/Globulin Ratio 1.1 (1.0-2.1) 08/19/18 10:50 - Hospital Course Hospital Course: 88 y/o female w/ history of myasthenia gravis and DJD of lumbar spine was admitted of worsening of lower and mid back pain in the past few days affecting her gait and mobility. Pain management was consulted. Epidural steroid injection given. Patient improvement of pain though was noted to have hyponatremia which was treated. Patient was discharged in stable condition to [place]. Discharge Exam - Head Exam Head Exam: NORMAL INSPECTION - Eye Exam Eye Exam: Normal appearance - Respiratory Exam Respiratory Exam: NORMAL BREATHING PATTERN - Cardiovascular Exam Cardiovascular Exam: +S1, +S2 - GI/Abdominal Exam GI & Abdominal Exam: Normal Bowel Sounds - Neurological Exam Neurological exam: Alert, Oriented x3 - Psychiatric Exam Psychiatric exam: Normal Affect, Normal Mood - Skin Skin Exam: Normal Color, Warm Discharge Plan - Discharge Medications Prescriptions: ALPRAZolam [Xanax] 0.25 mg PO Q12 PRN #20 tab PRN Reason: Anxiety - Follow Up Plan Condition: STABLE Disposition: REHAB FACILITY/REHAB UNIT Instructions: Low Back Pain in Adults Referrals: Vin Pedro MD [Primary Care Provider] -
== END 2018-08-21 15:30 | DRG 552 ==
LOC: SUPCPDRO 10:44 → H.ER 10:44 → H.ERHOLD 13:22 → H.MEDSURG1 16:00 → OBSVTOIN 08-17 17:21 → H.MEDSURG1 08-18 22:43
PROVIDERS: ADMIT Family Medicine; ATTEND Family Medicine
PROC: 3E0R33Z Introduction of Anti-inflammatory into Spinal Canal, Percutaneous Approach (ICD-10-PCS; 2018-08-18)
PROC: 3E0R3BZ Introduction of Anesthetic Agent into Spinal Canal, Percutaneous Approach (ICD-10-PCS; 2018-08-18)
PROC: 3E0U33Z Introduction of Anti-inflammatory into Joints, Percutaneous Approach (ICD-10-PCS; principal; 2018-08-19)
PROC: 3E0U3BZ Introduction of Anesthetic Agent into Joints, Percutaneous Approach (ICD-10-PCS; 2018-08-19)
DX: M47.816 Spondylosis without myelopathy or radiculopathy, lumbar region (principal); E87.1 Hypo-osmolality and hyponatremia; G70.00 Myasthenia gravis without (acute) exacerbation; R26.9 Unspecified abnormalities of gait and mobility; F41.9 Anxiety disorder, unspecified; J44.9 Chronic obstructive pulmonary disease, unspecified; M81.0 Age-related osteoporosis without current pathological fracture; G89.29 Other chronic pain; M48.061 Spinal stenosis, lumbar region without neurogenic claudication; M19.90 Unspecified osteoarthritis, unspecified site; M51.36 Other intervertebral disc degeneration, lumbar region; I11.0 Hypertensive heart disease with heart failure; I50.9 Heart failure, unspecified; M54.30 Sciatica, unspecified side; K29.70 Gastritis, unspecified, without bleeding